=== PATIENT | male | born 1950 | race Caucasian/White ===

== ENCOUNTER → 2020-06-19 07:53 | Outpatient (CLI) | payer OTHER, SELFPAY ==
[2020-06-13 10:11] VITALS: BMI 21.9
[2020-06-14 10:04] VITALS: BMI 22.1
--- NOTE | 2020-06-19 07:54 | MRI_ITS ---
STUDY: MRI BRAIN WITH AND WITHOUT CONTRAST REASON FOR EXAM: Male, 69 years old. lung cancer staging TECHNIQUE: Standardized multiplanar fat and water weighted pulse sequences were obtained. IV 15ml Dotarem was administered for the contrast portion of the examination. COMPARISON: None. FINDINGS: There is mild cerebral atrophy with widening of the extra-axial spaces and ventricular dilatation. There are a limited number of small white matter hyperintensities, distributed throughout the deep white matter tracts of the cerebral hemispheres, consistent with mild chronic white matter ischemic changes. Normal bilateral basal ganglia. Normal thalami. There is no extra-axial fluid accumulation. Normal flow voids within the major intracranial circulation suggesting patency by spin echo criteria. Normal venous enhancement. There is no enhancing intra-axial or extra-axial abnormality. Normal sella turcica, pituitary gland, infundibular stalk, optic chiasm and hypothalamus. Normal tectal plate and pineal gland. There are chronic white matter ischemic changes of the lupillo. The midbrain and medulla are otherwise normal. Normal cerebellum. MRI/Brain W/WO Contrast IMPRESSION: No evidence of intracranial metastatic disease. No acute intracranial abnormality. Electronically Signed: Fern Vail MD at 15:50 EDT Tel , Service support ,
--- NOTE | 2020-06-19 07:54 | MRI_ITS ---
STUDY: MRI RIGHT BRACHIAL PLEXUS WITH AND WITHOUT CONTRAST REASON FOR EXAM: Male, 69 years old. lung cancer eval for brachial plexus disease -- eval for plexus and CW invasion TECHNIQUE: Standardized fat and water weighted pulse sequences were obtained in all 3 orthogonal planes, pre-and post contrast administration. IV 15ml Dotarem was administered for the contrast portion of the examination. COMPARISON: PET/CT exam dated April 27, 2020. FINDINGS: 7.47 x 5.58 cm heterogeneous malignant spiculated mass is present in the right upper lobe apex and upper one third region, mildly invading the right side of the superior mediastinum. There is edema and malignant infiltration of the overlying right second and third ribs, as well as the pleura. There is diffuse edema in the right brachial plexus and in the sheath of the nerve roots. There appears to be a small component of the right upper lobe mass extending into the posterior inferior aspect of the brachial plexus which is seen on all 3 planes particularly on the postcontrast images. This is also seen on the T1 noncontrast sequence image series 3. A portion of the mass also extends into the right neural foramen at the T1, T2, T3 levels. Portions of the right upper lobe malignant mass encircling nerve roots at this level. No demonstrated metastatic disease or primary mass of the scapula on this exam. No demonstrated abnormality in the course of the roots, trunks, divisions or cords of the brachial plexus. There is no demonstrated neural enlargement, neural edema or enhancement of the brachial plexus. Normal visualized subclavian artery and vein. Normal muscles of the rotator cuff. The visualized shoulder is normal. Normal pulmonary apex. MRI/Upper Ext No Joint W/WO Cont IMPRESSION: 1. Large heterogeneous malignant mass of the right upper lobe invading the pleura and the right superior mediastinum 2. Malignant infiltration of the mass into the right second and third ribs 3. 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 4. Malignant invasion of portions of the mass into the right intervertebral neural foramina at T1-T2 and T2-T3 Electronically Signed: Bigg Torres MD at 0:01 EDT , Service support ,
== END ==
PROVIDERS: Referring Provider Student in an Organized Health Care Education/Training Program; Visit Provider Student in an Organized Health Care Education/Training Program
DX: C34.90 Malignant neoplasm of unspecified part of unspecified bronchus or lung (principal)
CPT/HCPCS: 70553; 73220; A9575

== ENCOUNTER 2020-06-29 11:00 | Day surgery (SDC) | payer OTHER, SELFPAY ==
[2020-06-13 10:11] VITALS: BMI 21.9
[2020-06-20 13:24] VITALS: BMI 22.4
[2020-06-28 08:48] VITALS: BMI 22.4
[2020-06-29] VITALS (7 sets, daily range): BP systolic 128–139; BP diastolic 62–74; PULSE 60–83; RESP 14–20; TEMP 36.1–36.6; O2SAT 94–100; BMI 22.5
--- NOTE | 2020-06-29 07:00 | HP_ITS ---
Intake Vital Signs 06/20/20 Height 6 ft 06/20/20 Weight: 165 lb 06/20/20 BMI 22.4 06/20/20 BP 118/71 06/20/20 Blood Pressure Location Rt brachial 06/20/20 Position Sitting 06/20/20 Respiration 18 06/20/20 Pulse 97 06/20/20 Pulse Oximetry (%) 98 06/20/20 Oxygen Delivery Method room air Intake Visit Reasons: port placement Chief Complaint: port Dust Handler Required: No Is patient in pain?: No Allergies Iodinated Contrast Media [CONTRASTS] Allergy (Verified 06/20/20 13:24) Anaphylaxis Medications Finasteride [Proscar] 5 mg PO DAILY 06/13/20 [History Confirmed 06/20/20] Hydrochlorothiazide [Hctz] 12.5 mg PO DAILY 06/13/20 [History Confirmed 06/20/20] Losartan Potassium [Cozaar] 1 tab PO DAILY 06/13/20 [History Confirmed 06/20/20] Amitriptyline HCl 0 mg PO QHS #30 tab 06/14/20 [Rx Confirmed 06/20/20] Amlodipine [Norvasc] 5 mg PO DAILY 06/14/20 [History Confirmed 06/20/20] Cholecalciferol (VIT D3) [Vitamin D] 1,000 unit PO DAILY 06/14/20 [History Confirmed 06/20/20] Dexamethasone [Decadron] 4 mg PO DAILY@0800 #30 tab 06/14/20 [Rx Confirmed 06/20/20] Lactobacillus Combination No.8 [Adult Probiotic] 1 ea PO DAILY 06/14/20 [History Confirmed 06/20/20] Salsalate [Salsitab] 750 mg PO BID 06/14/20 [History Confirmed 06/20/20] Tamsulosin HCl [Flomax] 0.4 mg PO DAILY 06/14/20 [History Confirmed 06/20/20] Lidocaine/Prilocaine [Lidocaine-Prilocaine Cream] 1 applic TP DAILY PRN PRN 30 Days #1 tube 06/19/20 [Rx Confirmed 06/20/20] Ondansetron [Ondansetron Odt] 8 mg PO Q8H PRN PRN 10 Days #30 tab.rapdis 06/19/20 [Rx Confirmed 06/20/20] PFSH Medical History Lung cancer (Acute) REMOVAL OF BENIGN MOLES ON BACK (Acute) Surgical History History of appendectomy (Acute ~2005) Previous back surgery (Acute ~2003) Status post Mohs surgery (Acute ~2012) Family History Brother Lung cancer Father Black lung Social History (Updated 06/20/20 @ 13:[address] Nellie Hernández MD) Smoking Status: Former smoker HPI HPI HPI: PALOMA DUMONT, is a 69 M who presents to the office today for HPI HPI Surgical H&P: Yes HPI: PALOMA DUMONT, is a 69 M who presents to the office today for port placement due to non-small cell cancer. Patient plans to start his treatments on 07/03/2020. He is planned to have chemo in radiation. Patient is not on any blood thinners. ROS General General: Yes weight change and fatigue Cardio Cardiovascular: No chest pain Resp Respiratory: Yes shortness of breath, No sleep apnea, No cough, Yes COPD, No asthma, No emphysema, No wheezing Exam Const General: cooperative, comfortable, no acute distress Neck Neck: supple Chest Chest palpation & inspection: normal inspection of the chest (Upper and normal palpation of upper chest) Resp Effort & Inspection: normal respiratory effort Cardio Rate: regular rate Assessment & Plan Problems 1. Adjustment and management of vascular access device Z45.2 2. NSCLC of right lung C34.91 Plan I have discussed above with the patient- Port-a-Cath placement. Left possible right Patient has been counseled as to the risks/benefits of the procedure. I have explained the risks of the surgery, including but not limited to: infection, bleeding, injury to any blood vessels/nerves, injury to lungs (such as pneumothorax or hemothorax and need for chest tube), not having any access, nonfunctioning of port due to thrombosis, infection of port, etc. the patient understands and agrees to proceed. I have answered all the patient's questions to the patient?s satisfaction and the patient has no further questions. Nellie Hernández M.D. Pager: [phone] [facility] [address] [place] [address], [facility], [address] [place] [address] Office: [phone] Plan Detail Follow Up We will schedule port placement for 06/29 per patient request Coding Level of Care Code Off vis,new,level 3 Diagnoses Adjustment and management of vascular access device Z45.2 NSCLC of right lung C34.91 COVID (Procedure Consent) Procedure Criteria Procedure Criteria: Yes Elective The surgeon/proceduralist and patient have discussed in detail the risk of exposure to and/or potential harm posed by the COVID-19 virus with having a surgery/procedure at this time versus the risk of? delaying the surgery/procedure. It is not possible to know either the risk of delaying the surgery or procedure or chance of getting an infection with perfect accuracy, but a joint decision was made between the patient and the surgeon/proceduralist ?to proceed at this time with the scheduled surgery/procedure as indicated on the consent form. I have re-examined the patient. There are no clinical changes since date of exam.
[2020-06-29] MEDS: Lactated Ringers 1,000 ML 100 ML IV (12:04)
[2020-06-29] MEDS: Cefazolin 2 GM in 0.9% Normal Saline 100 ML IV (12:29)
[2020-06-29] MEDS: Lidocaine 1% /Epi 1:100 (20ml) 20 ML Vial (13:00)
[2020-06-29] MEDS: Bupivacaine Mpf 0.5% 30 ML VIAL (13:00)
--- NOTE | 2020-06-29 13:14 | PCM.OPRPT ---
Report of Operation Date of Procedure: 06/29/20 Pre-Operative Diagnosis: Z 45.2, right lung cancer Post-Operative Diagnosis: Same Surgery/Procedure Performed:: 1. Placement of left IJ Port-A-Cath. 2. Use of fluoroscopy. 3. Use of ultrasound senior principal process engineer: Gerber Mcneil Type of Anesthesia:: Local MAC Anesthesiologist: Placido Lindsey Special Medications: Ancef 2 g IV x1 Estimated Blood Loss (mL): < 10 cc Fluids Replaced: 500 cc Description of Procedure: After informed consent was given, the patient was brought to the operating room and placed in the supine position. Appropriate time out protocol was followed. Patient was then given IV conscious sedation for anesthesia. The patient's left upper chest and neck were then prepped with a surgical skin preparation and sterile surgical drapes were placed. After proper landmarks were ascertained, the skin at the upper left chest area was then infiltrated with 1:1 mixture of 1% lidocaine with epinephrine and 0.5% marcaine. A needle trocar was then inserted into the left internal jugular vein with ultrasound guidance-multiple vessels were viewed with u/s and the left IJ was chosen-- and there was good aspiration of venous blood. A wire was then threaded into the needle trocar and this was visualized under fluoroscopy to ensure that the wire was in the superior vena cava. Once this was done, then the needle trocar was removed. A small skin marlin was made with an 11 blade knife at the wire entrance site. The dilator with the introducer sheath attached was then placed over the wire into the left internal jugular vein via the Seldinger technique and this was visualized under fluoroscopy. The dilator and sheath were in proper position as visualized by fluoroscopy. A subcutaneous pocket was then created caudad to the catheter insertion site. A transverse skin incision was made after the skin and subcutaneous tissues were infiltrated with local anesthetic. Blunt dissection was then used to create a space large enough for placement of the subcutaneous port. The catheter was then tunneled into the subcutaneous pocket. The wire and dilator were then removed. The catheter was then threaded into the introducer sheath and was positioned with its tip at the junction of the superior vena cava and the right atrium as visualized under fluoroscopy. The excess catheter was transected. The catheter was then attached to the subcutaneous port using manufacturers guidelines. The catheter was flushed with a heparin saline mixture prior to placement. Hemostasis was carefully controlled with electrocautery. The port was sutured to the subcutaneous fascia using 2-0 Vicryl suture at two sites. The port was then placed in the subcutaneous pocket. The incision were reapproximated with interrupted subdermal 3-0 vicryl sutures. The skin was reapproximated with 3-0 nylon suture in a interrupted fashion. Steristrips were used for reinforcement of the skin closure at IJ insertion site and a sterile opsite dressings were applied. The patient tolerated the procedure well. Implants Used: Bard PowerPort isp M.R.I. 6Fr Lot ref [id number] lot [id number] Grafts/Implants Used: Bard PowerPort isp M.R.I. 6Fr Lot ref [id number] lot [id number] - Complications none
--- NOTE | 2020-06-29 13:16 | DCINST_ITS ---
Discharge Diet: Light diet - advance as tolerated Lifting Restrictions: no lifting > 20 lb w left arm x 2 days Call your doctor if your incision/area has: Continuous Slow Oozing, Sudden Increased Bleeding, Increased Pain/ Swelling, Increased Redness, Foul Smelling Discharge, Swelling at the incision site Call your doctor if you observe: Fever of 101 or Higher Remove Dressing in (days):: 5 - Keep port site clean and dry for 5 days. Okay to remove the OpSite from the neck incision after 1 day. Also okay for the neck incision to get wet after 1 day. Okay to take a lower shower and upper sponge bath or tape off the port site with a Ziploc bag to shower. Allergies/Adverse Reactions: Allergies Iodinated Contrast Media [CONTRASTS] Allergy (Verified 06/28/20 13:53) Anaphylaxis Medications to take at Discharge Finasteride [Proscar] 5 mg PO DAILY 06/13/20 Hydrochlorothiazide [Hctz] 12.5 mg PO DAILY 06/13/20 Losartan Potassium [Cozaar] 1 tab PO DAILY 06/13/20 Amlodipine [Norvasc] 5 mg PO DAILY 06/14/20 Cholecalciferol (VIT D3) [Vitamin D] 1,000 unit PO DAILY 06/14/20 Dexamethasone [Decadron] 4 mg PO DAILY@0800 #30 tab 06/14/20 Lactobacillus Combination No.8 [Adult Probiotic] 1 ea PO DAILY 06/14/20 Salsalate [Salsitab] 750 mg PO BID 06/14/20 Tamsulosin HCl [Flomax] 0.4 mg PO DAILY 06/14/20 Lidocaine/Prilocaine [Lidocaine-Prilocaine Cream] 1 applic TP DAILY PRN PRN 30 Days #1 tube 06/19/20 Ondansetron [Ondansetron Odt] 8 mg PO Q8H PRN PRN 10 Days #30 tab.rapdis 06/19/20 Amitriptyline HCl 25 mg PO QHS 06/22/20 Vit C/E/Zn/Coppr/Lutein/Zeaxan [Preservision Areds 2 Softgel] 1 each PO DAILY 06/22/20 Primary Care Physician: [facility],[place] [Primary Care Provider] - Test Results: Test results from this visit will be discussed in further detail at your follow- up appointment, if applicable. Please Follow Up With: Nellie Hernández MD - 5:00 on the weekends call [phone] with any concerns When: Call the office for a follow-up appointment in 10 days for suture removal Proposed Discharge Date: 06/29/20
--- NOTE | 2020-06-29 13:18 | RAD_ITS ---
STUDY: X-RAY CHEST REASON FOR EXAM: Male, 69 years old. Port -- pacu TECHNIQUE: Single AP portable view of the chest. COMPARISON: None. FINDINGS: A left-sided hillary catheter has been placed. The tip is at the junction of the superior vena cava and right atrium. Hyperinflation. There is a 9 cm x 5.9 cm mass in the medial apex of the right lung. There is no demonstrated pleural abnormality. Normal size heart. Normal mediastinum and diogenes. Normal visualized pulmonary arteries. There is atherosclerotic calcification of the aortic arch with tortuosity. Normal visualized thoracic spine. Normal visualized ribs, clavicles, and shoulders. There is no demonstrated abnormality of the visualized soft tissue structures of the upper abdomen. RAD/CXR for Line Placement IMPRESSION: The tip of the left hillary catheter is at the junction of the superior vena cava and right atrium. 9 cm x 5.9 cm mass in the medial right lung apex. Electronically Signed: Jas Tejada MD at 13:55 EDT , Service support ,
== END 2020-06-29 14:33 | disposition home or self-care (01) ==
LOC: SDC 11:00 → AC 11:01
PROVIDERS: Referring Provider Surgery; Visit Provider Surgery
PROC: (CPT 36561; principal; 2020-06-29 12:45)
DX: Z45.2 Encounter for adjustment and management of vascular access device (principal); C34.91 Malignant neoplasm of unspecified part of right bronchus or lung; Z79.899 Other long term (current) drug therapy; Z79.52 Long term (current) use of systemic steroids; Z20.828 Contact with and (suspected) exposure to other viral communicable diseases; Z87.891 Personal history of nicotine dependence
CPT/HCPCS: 36561; 71045; 77001; 87426; C9803; J2405

== ENCOUNTER 2020-07-09 16:03 | Inpatient (IN) | payer OTHER, MEDICARE, SELFPAY ==
[2020-06-13 10:11] VITALS: BMI 21.9
[2020-07-05 14:44] VITALS: BMI 22.6
[2020-07-09] VITALS (11 sets, daily range): BP systolic 116–151; BP diastolic 57–75; PULSE 81–107; RESP 16–19; TEMP 36.6–38.1; O2SAT 95–99; BMI 22.4; BMI 22.8
--- NOTE | 2020-07-09 16:14 | EKG12_ITS ---
Test Reason : SYNCOPE Blood Pressure : / mmHG Vent. Rate : 107 BPM Atrial Rate : 107 BPM P-R Int : 140 ms QRS Dur : 088 ms QT Int : 314 ms P-R-T Axes : 058 055 061 degrees QTc Int : 419 ms Sinus tachycardia Otherwise normal ECG Confirmed by JONATHON NUÑEZ, DANIEL ([id number]), index editor EBONI LEWIS ([id number]) on 07/12/2020 7:52:18 AM Referred By: GULSHAN Confirmed By:DANIEL HOLT MD
--- NOTE | 2020-07-09 16:28 | ED.DCSUM_ITS ---
History of Present Illness Chief Complaint: Syncope Informant: Patient Narrative: 69-year-old male with history of non-small cell carcinoma. He was diagnosed with this 04/19/2020. He was started on chemotherapy weekly with Taxol/carboplatin. He is also been doing radiation has had treatment treatments so far. He has a port placed in the left upper chest wall. Patient states that he believes he had a fever this morning however he did not check it until 30 minutes prior to arrival. He had not taken anything for a fever. He states that he has chills all day long. He denies body aches. He does state that he has a change in taste however this is coppery and has been present since star ting chemotherapy recently. He states he is always short of breath but this is unchanged. He denies a cough. He denies urinary or bowel symptoms. He states he has not had any contact with anybody that is ill. Patient states that he currently is weaned off of steroids and had his last dose the day before yesterday. Today he does report an episode of syncope at home. Past Medical History - Allergies and Home Meds Allergies/Adverse Reactions: Allergies Iodinated Contrast Media [CONTRASTS] Allergy (Verified 07/09/20 16:12) Anaphylaxis Primary Care Physician: [facility],[place] [Primary Care Provider] - Prior records reviewed: Yes Past Medical History: - - Hypertension, BPH, non-small cell carcinoma right upper lobe Surgical History: - - Had port Lives: Spouse/ Significant Other Smoking Status: Former smoker Alcohol: None Drugs: None Review of Systems General: Reports: Chills, Fever. Denies: Malaise, Subjective Eyes: Denies: Visual changes - bilaterally, Diplopia ENT: Denies: Rhinorrhea, Sore throat Cardiovascular: Denies: Chest pain, Palpitations Respiratory: Reports: Dyspnea. Denies: Cough Gastrointestinal: Denies: Abdominal pain, Nausea, Vomiting, Diarrhea, Melena, Hematochezia Musculoskeletal: Denies: Back pain, Extremity Pain Skin: Denies: Rash, Wounds Neurological: Denies: Headache, Weakness, Numbness Psych: Denies: Depression, Anxiety, Suicidal thoughts, Suicidal ideations, -, - Physical Exam Vital Signs/Narrative: Vital Signs Temp Pulse Resp BP Pulse Ox 07/09/20 16:05 100.6 F H 107 H 19 H 151/75 H 98 Inital Vital Signs reviewed: Yes General: Well nourished, No Acute Distress Head: Normocephalic, Atraumatic Eyes: Perrl, EOMI ENT: Moist mucous membranes, No rhinorrhea Neck: Supple, Nontender Cardiovascular: Regular rhythm, Tachycardia Respiratory: No distress, - - Basal crackles left lung base Abdomen: Soft, Nontender, Nondistended Extremities: Nontender, No edema Skin: Normal color, No rash. Negative for: Cyanosis, Diaphoresis, Jaundice Neurological: Alert, Oriented x3, Cranial nerves II-XII grossly intact Psychological: Normal affect, Normal Mood Diagnostic/Tx/Re-eval Clinical Impression(s) from Imaging Studies Chest X-Ray 07/09/20 16:42 IMPRESSION: Stable exam compared to prior study on 06/29/2020. Electronically Signed: Brad Patel MD at 17:00 EDT Tel , Service support , Laboratory Data 07/09/20 07/09/20 07/09/20 16:35 16:35 16:35 WBC 8.5 RBC 3.22 L Hgb 8.5 L Hct 25.2 L MCV 78.3 L MCH 26.4 L MCHC 33.7 RDW Std Deviation 47.9 H RDW Coeff of Hill 17.6 H Plt Count 395 MPV 9.2 Immature Gran % (Auto) 2.100 H Neut % (Auto) 90.0 H Lymph % (Auto) 4.4 L Hinds % (Auto) 2.7 Eos % (Auto) 0.4 Baso % (Auto) 0.4 Absolute Neuts (auto) 7.6 Absolute Lymphs (auto) 0.37 L Nucleated RBC % 0 Differential Comment SCANNED Platelet Estimate ADEQUATE Hypochromasia 1+ Anisocytosis 2+ Microcytosis 1+ Target Cells RARE Acanthocytes (Spur) RARE Schistocytes RARE PT 15.6 H INR 1.3 APTT 31.9 Sodium 129 L Potassium 4.3 Chloride 97 L Carbon Dioxide 25.0 Anion Gap 7 BUN 31 H Creatinine 1.17 Estim Creat Clear Calc 62.19 Est GFR (MDRD) Af Amer 79 Est GFR (MDRD) Non-Af 65 BUN/Creatinine Ratio 26.5 H Glucose 125 H Lactic Acid Calcium 7.7 L Total Bilirubin 0.30 AST 19 ALT 29 Alkaline Phosphatase 141 H Total Protein 5.8 L Albumin 1.9 L Globulin 3.9 Albumin/Globulin Ratio 0.5 L Urine Color Urine Clarity Urine pH Ur Specific [place] Urine Protein Urine Glucose (UA) Urine Ketones Urine Occult Blood Urine Nitrite Urine Bilirubin Urine Urobilinogen Ur Leukocyte Esterase Urine RBC Urine WBC Ur Squamous Epith Cells Amorphous Sediment Urine Bacteria Urine Mucus 07/09/20 07/09/20 16:35 17:10 WBC RBC Hgb Hct MCV MCH MCHC RDW Std Deviation RDW Coeff of Hill Plt Count MPV Immature Gran % (Auto) Neut % (Auto) Lymph % (Auto) Hinds % (Auto) Eos % (Auto) Baso % (Auto) Absolute Neuts (auto) Absolute Lymphs (auto) Nucleated RBC % Differential Comment Platelet Estimate Hypochromasia Anisocytosis Microcytosis Target Cells Acanthocytes (Spur) Schistocytes PT INR APTT Sodium Potassium Chloride Carbon Dioxide Anion Gap BUN Creatinine Estim Creat Clear Calc Est GFR (MDRD) Af Amer Est GFR (MDRD) Non-Af BUN/Creatinine Ratio Glucose Lactic Acid 1.5 Calcium Total Bilirubin AST ALT Alkaline Phosphatase Total Protein Albumin Globulin Albumin/Globulin Ratio Urine Color Yellow Urine Clarity Sl. Cloudy Urine pH 7.0 Ur Specific [place] 1.005 Urine Protein 30 H Urine Glucose (UA) 250 H Urine Ketones Negative Urine Occult Blood 10 H Urine Nitrite Negative Urine Bilirubin Negative Urine Urobilinogen 1 H Ur Leukocyte Esterase Negative Urine RBC 0-5 SEEN Urine WBC 0 SEEN Ur Squamous Epith Cells 0-5 SEEN Amorphous Sediment 1+ PHOS Urine Bacteria 0 SEEN Urine Mucus 0 SEEN - Medical Decision Making Patient presenting with fever, history of syncope earlier today, history of non- small cell lung cancer on chemotherapy and radiation therapy. Patient took nothing for fever prior to arrival. He was given a gram of Tylenol in the ED. Patient had EKG performed on arrival which showed a sinus tachycardia at 107 bpm without signs of ischemic changes as interpreted by myself. Review of the medical record shows that on 07/05/2020 he had a white blood cell count of 26.7, hemoglobin 9.0 hematocrit 27.6, platelet count 522. His CMP showed a sodium of 134, potassium 4.2, chloride 104, CO2 23, anion gap 7, BUN 42, creatinine 1.29 GFR 58, normal magnesium LFTs were unremarkable. Patient currently states he has chronic shortness of breath and a mild cough. He also has a fever. Given that he has SIRS criteria he was pancultured. Patient was given Zosyn empirically given concern for neutropenic fever. Patient was not found to be neutropenic and his white blood cell count had normalized. His hemoglobin was slightly lower than previous. This is likely due to chemotherapy. His chest x- ray as interpreted by myself shows no acute cardiopulmonary process. Patient does have a normal GFR however he does also have prerenal azotemia. He was given a liter of IV fluids after his Covid swab was negative. Respiratory panel is pending. Patient's urinalysis was negative for infection. His urine and blood are cultured. Patient's fever has broken and he feels improved. Patient was discussed with specialist who will admit him for observation. Impression: 1. Syncope 2. Febrile illness 3. History of non-small cell carcinoma ED Disposition - Plan for ED Patient: [facility]errals: [facility] [Primary Care Provider] -
--- NOTE | 2020-07-09 16:42 | RAD_ITS ---
INDICATION: fever EXAMINATION/TECHNIQUE: X-RAY - XR Chest 1 View COMPARISON: 06/29/2020. FINDINGS: Left sided chest port with tip in the low SVC. Left basilar atelectasis. Redemonstration of right apical lung mass. Tortuous and calcified thoracic aorta. The heart is not enlarged. No pleural effusion or pneumothorax. No acute osseous abnormalities. RAD/Chest 1 View (Portable) IMPRESSION: Stable exam compared to prior study on 06/29/2020. Electronically Signed: Brad Patel MD at 17:00 EDT Tel , Service support ,
[2020-07-09 16:47] LABS: Absolute Lymphocyte Count 0.37 X10^3/uL (0.83-4.51); Absolute Neutrophil Count 7.6 X10^3/uL (2.0-7.7); Basophil# 0.03 X10^3/uL; Basophil% 0.4 % (0-1); Eosinophil# 0.03 X10^3/uL; Eosinophils% 0.4 % (0-5); Hematocrit 25.2 % (40-54); Hemoglobin 8.5 g/dL (13.0-16.5); Lymphocyte # 0.37 X10^3/ul (4.0); Lymphocyte % 4.4 % (19-41); Mean Corp Hgb Conc 33.7 g/dL (32-36); Mean Corpuscular Hgb 26.4 pg (27.0-32.0); Mean Corpuscular Volume 78.3 fL (80-94); Mean Platelet Vol. 9.2 fl (6.2-12.0); Monocyte# 0.23 X10^3/uL; Monocyte% 2.7 % (0-10); NRBC Flagged by Analyzer 0 % (0-5); Neutrophil # 7.63 X10^3/uL (2.7-7.7); POSITIVE DIFFERENTIAL YES; Platelet Count 395 K/mm3 (150-450); RBC Distribution Width CV 17.6 % (11.6-14.6); RBC Distribution Width SD 47.9 fl (35.1-43.9); Red Blood Count 3.22 M/mm3 (4.6-6.2); White Blood Count 8.5 K/mm3 (4.4-11.0)
[2020-07-09] MEDS: Acetaminophen 500 MG Tablet 1000 MG PO (16:51)
[2020-07-09 16:57] LABS: Differential Indicated SCAN CRITERIA MET
[2020-07-09 17:02] LABS: International Normalized Ratio 1.3; Prothrombin Time (Protime)PT. 15.6 SECONDS (11.7-14.9)
[2020-07-09 17:03] LABS: Partial Thromboplast Time 31.9 Seconds (24.1-36.2)
[2020-07-09 17:12] LABS: ALB/GLOB Ratio 0.5 RATIO (0.9-2.4); AST(SGOT) 19 U/L (15-37); Alanine Aminotransfer ALT/SGPT 29 U/L (16-61); Albumin, Serum 1.9 g/dL (3.2-5.0); Alkaline Phosphatase 141 U/L (45-117); Anion Gap 7 (5-15); BUN 31 mg/dL (7-18); BUN/Creat Ratio 26.5 RATIO (10-20); Calcium,Total 7.7 mg/dL (8.5-10.1); Chloride 97 mmol/L (98-107); Creatinine, Serum 1.17 mg/dL (0.70-1.30); EST Glomerular Filtration Rate 65 mL/min (>60); Est Glom Filt Rate - Afr Amer 79 mL/min (>60); Estimated Creatinine Clearance 62.19 ml/min; Globulin 3.9 g/dL (2.2-4.2); Glucose 125 mg/dL (74-106); Lactic Acid 1.5 mmol/L (0.4-1.9); Potassium 4.3 mmol/L (3.5-5.1); Protein, Total 5.8 g/dL (6.4-8.2); Sodium Level 129 mmol/L (136-145)
[2020-07-09 17:17] LABS: Bacteria 0 SEEN /hpf (None Seen); Mucous, Urine 0 SEEN /hpf (<or=2+); White Blood Cells 0 SEEN /hpf (0-5)
[2020-07-09 17:25] LABS: Color, Urine Yellow (Yellow); Glucose, Dipstick 250 mg/dl (Normal); Ketone-Dipstick Negative (Negative); Leukocyte Esterase-Dipstick Negative /ul (Negative); Nitrite-Dipstick Negative (Negative); Occult Blood-Urine 10 /ul (Negative); Protein-Dipstick 30 mg/dl (Negative); Specific Gravity, Urine 1.005 (1.002-1.030); Urine Bilirubin Dipstick Negative (Negative); Urine Clarity Sl. Cloudy (Clear); Urine Urobilinogen 1 mg/dl (Normal)
[2020-07-09 17:35] LABS: Amorphous Sediment 1+ PHOS; Red Blood Cells-Urine 0-5 SEEN /hpf (0-5); Squamous Epithelial Cells - UA 0-5 SEEN /hpf (0-5)
[2020-07-09 17:41] LABS: Acanthocytes RARE; Anisocytosis 2+; Differential Comment SCANNED; Hypochromasia 1+; Platelet Estimate ADEQUATE (ADEQ)
[2020-07-09 17:42] LABS: Schistocytes RARE
[2020-07-09 17:43] LABS: Microcytosis 1+; Target Cells RARE
[2020-07-09] MEDS: 0.9% Normal Saline 1,000 ML 999 ML IV (18:21)
--- NOTE | 2020-07-09 19:09 | HP.PCM_ITS ---
History of Present Illness Date of Admission: 07/09/20 Chief Complaint: Chills and fever with syncope The patient is a 69 year old M with a PMH as below presents to the hospital with fevers and chills as well as an episode of syncope this morning. He says that he has not been feeling right since he started chilling this morning and then prior to coming in he had a fever of 102. He also had an episode of syncope this morning and he said that he had been feeling lightheaded and dizzy prior to the fall indicating that it was a vasovagal episode. Denies any worsening shortness of breath, he states that he is chronically short of breath secondary to his COPD and is newly diagnosed stage IIIb non-small cell lung cancer in his right upper lobe. He is currently undergoing chemotherapy and had a port placed about 10 days ago and underwent his first dose of chemotherapy I believe on June 28. He denies any abdominal pain, no cough, no urinary frequency or dysuria. UA was unremarkable, chest x-ray without a consolidation, his Covid test is negative. Respiratory panel is pending. Past Medical History Medical History: Medical History (Last Reviewed 07/05/20 @ 09:14 by Ladonna Swanson RN) Lung cancer C34.90 REMOVAL OF BENIGN MOLES ON BACK Allergies Iodinated Contrast Media [CONTRASTS] Allergy (Verified 07/09/20 16:12) Anaphylaxis Home Medications: Ambulatory Orders Medication Instructions Recorded Finasteride [Proscar] 5 mg PO DAILY 06/13/20 Hydrochlorothiazide [Hctz] 12.5 mg PO DAILY 06/13/20 Losartan Potassium [Cozaar] 1 tab PO DAILY 06/13/20 Amlodipine [Norvasc] 5 mg PO DAILY 06/14/20 Cholecalciferol (VIT D3) [Vitamin 1,000 unit PO DAILY 06/14/20 D] Lactobacillus Combination No.8 1 ea PO DAILY 06/14/20 [Adult Probiotic] Salsalate [Salsitab] 750 mg PO BID 06/14/20 Tamsulosin HCl [Flomax] 0.4 mg PO DAILY 06/14/20 Lidocaine/Prilocaine 1 applic TP DAILY PRN PRN 30 Days 06/19/20 [Lidocaine-Prilocaine Cream] #1 tube Ondansetron [Ondansetron Odt] 8 mg PO Q8H PRN PRN 10 Days #30 06/19/20 tab.rapdis Amitriptyline HCl 25 mg PO QHS 06/22/20 Surgical History: Surgical History (Last Reviewed 07/05/20 @ 09:14 by Ladonna Swanson RN) History of appendectomy Onset Date: ~2005 Z90.49 Previous back surgery Onset Date: ~2003 Z98.890 Status post Mohs surgery Onset Date: ~2012 Z98.890 NOSE Surgical History: - - Had port Lives: Spouse/ Significant Other Smoking Status: Former smoker Tobacco Use: Cigarettes Alcohol: None Drugs: None - *Family History Maternal Family History: Family History (Last Reviewed 07/05/20 @ 09:14 by Ladonna Swanson RN) Brother Lung cancer Father Black lung Review of Systems Constitutional: Reports: Chills, Fever, Malaise. Denies: Weight Change HEENT: Denies: Head Aches, Sinus Congestion, Sinus Drainage Cardiovascular: Denies: Chest Pain, Palpitations Respiratory: Denies: Cough, Shortness of breath at rest, Sputum production Gastrointestinal: Denies: Abdominal Pain, Nausea, Vomiting Genitourinary: Denies: Dysuria, Frequency Musculoskeletal: Denies: Joint Pain, Joint Tenderness Skin: Denies: Rash, Wounds Neurological: Denies: Numbness, Tingling, Focal weakness Psychiatric: Denies: Anxiety, Depression Hematologic/ Lymphatic: Denies: Easy Bruising, Easy Bleeding VTE Information - Inpt Only VTE Present on Admission: No - Physical Exam Vitals/I&O's: Vital Signs Temp Pulse Resp BP Pulse Ox 98.2 F 81 17 128/57 H 99 07/09/20 18:14 07/09/20 18:09 07/09/20 18:09 07/09/20 18:09 07/09/20 18:09 Oxygen Delivery Method Room Air Weight: 165 lb Body Mass Index (BMI) 22.4 Intake and Output for Last 24 Hours 07/07/20 07/08/20 07/09/20 23:59 23:59 23:59 Intake Total 50 / 50 Balance 50 / 50 General: Alert, Oriented x3, Cooperative, No apparent distress HEENT: Atraumatic, PERRLA, EOMI, Normocephalic Oral: Moist Mucosa Neck: Supple, No JVD Lungs: Clear to auscultation, Normal air movement, No rhonchi, No wheeze, No rales Cardiovascular: Regular rate, Regular Rhythm, Normal S1, Normal S2, No murmurs Abdomen: Soft, Non Tender, Non-Distended, No Hepato-splenomegaly Extremities: No edema, Capillary Refill Less than 3 Seconds Skin: No rashes, No breakdown, - - Skin around the port looks clean, no infection no purulence no pain Neurological: Neuro grossly intact, Sensory exam intact to light touch and pain Psych/Mental Status: Normal Affect, Appropriate Microbiology Past 72 Hours 07/09/20 16:28 Mucosa - Nose SARS-CoV-2 Antigen (Rapid) - Final Laboratory Results 07/09/20 16:35: WBC 8.5, RBC 3.22 L, Hgb 8.5 L, Hct 25.2 L, MCV 78.3 L, MCH 26.4 L, MCHC 33.7, RDW Std Deviation 47.9 H, RDW Coeff of [place] 17.6 H, Plt Count 395, MPV 9.2, Immature Gran % (Auto) 2.100 H, Neut % (Auto) 90.0 H, Lymph % (Auto) 4.4 L, [place] % (Auto) 2.7, Eos % (Auto) 0.4, Baso % (Auto) 0.4, Absolute Neuts (auto) 7.6, Absolute Lymphs (auto) 0.37 L, Nucleated RBC % 0, Differential Comment SCANNED, Platelet Estimate ADEQUATE, Hypochromasia 1+, Anisocytosis 2+, Microcytosis 1+, Target Cells RARE, Acanthocytes (Spur) RARE, Schistocytes RARE 07/09/20 16:35: PT 15.6 H, INR 1.3, APTT 31.9 07/09/20 16:35: Sodium 129 L, Potassium 4.3, Chloride 97 L, Carbon Dioxide 25.0, Anion Gap 7, BUN 31 H, Creatinine 1.17, Estim Creat Clear Calc 62.19, Est GFR (MDRD) Af Amer 79, Est GFR (MDRD) Non-Af 65, BUN/Creatinine Ratio 26.5 H, Glucose 125 H, Calcium 7.7 L, Total Bilirubin 0.30, AST 19, ALT 29, Alkaline Phosphatase 141 H, Total Protein 5.8 L, Albumin 1.9 L, Globulin 3.9, Albumin/Globulin Ratio 0.5 L 07/09/20 16:35: Lactic Acid 1.5 07/09/20 17:10: Urine Color Yellow, Urine Clarity Sl. Cloudy, Urine pH 7.0, Ur Specific [place] 1.005, Urine Protein 30 H, Urine Glucose (UA) 250 H, Urine Ketones Negative, Urine Occult Blood 10 H, Urine Nitrite Negative, Urine Bilirubin Negative, Urine Urobilinogen 1 H, Ur Leukocyte Esterase Negative, Urine RBC 0-5 SEEN, Urine WBC 0 SEEN, Ur Squamous Epith Cells 0-5 SEEN, Amorphous Sediment 1+ PHOS, Urine Bacteria 0 SEEN, Urine Mucus 0 SEEN Current Medications Sodium Chloride () 1,000 mls @ 999 mls/hr IV .Q1H1M ONE Stop: 07/09/20 19:12 Last Admin: 07/09/20 18:21 Dose: 999 mls/hr Documented by: Assessment/Plan All Active Problems (Last Reviewed 07/05/20 @ 09:14 by Ladonna Swanson RN) 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 Fever of unknown origin/NSCLC stage IIIb squamous cell -No leukocytosis however neutrophils are elevated as her immature granulocytes -Initially when he came in he had a temperature of 100.6 and was tachycardic however the tachycardia has resolved as has his temperature -This could be mediated secondary to his initial cancer treatment with Taxol and carboplatin which was started on 06/28/2020 -He is also can resume radiation, per report this is inoperable -Given the left shift we will also place him on vancomycin and Zosyn since the only source of infection left since his skin is fine is potentially the port -Blood cultures and urine cultures are pending to help guide care -Respiratory panel was pending, Covid negative -Continue with IV fluids 2. HTN -Blood pressure is stable, though he thinks possibly his syncope was secondary to his hypotension because he is normally sits in the 160s to 170s and is currently 128 systolic -His syncope was likely related to his febrile illness and was vasovagal in origin -Continue with IV fluids -We will hold off on restarting his Norvasc, hydrochlorothiazide, or losartan 3. BPH -Stable -Continue with Flomax DVT: Lovenox OBSV E&M: [id number] Initial observation care L3
[2020-07-09] MEDS: 0.9% Normal Saline 1,000 ML 100 ML IV (19:40)
--- NOTE | 2020-07-09 20:16 | PCM.RX.CS ---
Consult Pharmacy has been consulted to manage selected antiobiotic: Vancomycin Type of Consult: New start Suspected Infection: Other Prior Doses of Antibiotics Received/Current Regimen: Medications Vancomycin HCl (Vancomycin) 1,000 mg in 200 mls @ 200 mls/hr IV Q12H KEE Vancomycin HCl 2,000 mg/ (Sodium Chloride) 540 mls @ 250 mls/hr IV X1 ONE Stop: 07/09/20 22:09 Last Admin: 07/09/20 20:07 Dose: 250 mls/hr Labs: Sodium 129 mmol/L (136-145) L 07/09/20 16:35 Potassium 4.3 mmol/L (3.5-5.1) 07/09/20 16:35 Chloride 97 mmol/L (98-107) L 07/09/20 16:35 Carbon Dioxide 25.0 mmol/L (21.0-32.0) 07/09/20 16:35 Anion Gap 7 (5-15) 07/09/20 16:35 BUN 31 mg/dL (7-18) H 07/09/20 16:35 Creatinine 1.17 mg/dL (0.70-1.30) 07/09/20 16:35 Est GFR (MDRD) Af Amer 79 mL/min (>60) 07/09/20 16:35 Est GFR (MDRD) Non-Af 65 mL/min (>60) 07/09/20 16:35 BUN/Creatinine Ratio 26.5 RATIO (10-20) H 07/09/20 16:35 Glucose 125 mg/dL (74-106) H 07/09/20 16:35 Microbiology: Microbiology 07/09/20 16:28 Mucosa - Nose SARS-CoV-2 Antigen (Rapid) - Final 07/09/20 16:28 Mucosa - Nose Respiratory Panel (PCR) - Final Weight used for dosin.8 kg Estimated Creatinine Clearance: 62 Goal Trough: 15-20 mcg/mL Pharmacy Plan for Drug Dosing: Pharmacy Service will continue to monitor and adjust dosing as required. Follow-Up Labs: Trough Vancomycin Labs to be done on [date and time ordered]: 07/11/20 @2483
[2020-07-09] MEDS: Finasteride 5 MG Tablet PO (22:34)
[2020-07-09] MEDS: Tamsulosin HCl 0.4 MG Capsule PO (22:35)
[2020-07-10] VITALS (8 sets, daily range): BP systolic 114–149; BP diastolic 47–91; PULSE 89–107; RESP 14–18; TEMP 36.6–38.3; O2SAT 94–99
[2020-07-10 06:42] LABS: Absolute Neutrophil Count 4.8 X10^3/uL (2.0-7.7); Basophil# 0.02 X10^3/uL; Basophil% 0.4 % (0-1); Eosinophil# 0.02 X10^3/uL; Eosinophils% 0.4 % (0-5); Hematocrit 24.4 % (40-54); Lymphocyte % 3.6 % (19-41); Mean Corp Hgb Conc 32.8 g/dL (32-36); Mean Corpuscular Hgb 25.9 pg (27.0-32.0); Mean Platelet Vol. 9.5 fl (6.2-12.0); Monocyte# 0.21 X10^3/uL; Monocyte% 3.8 % (0-10); NRBC Flagged by Analyzer 0 % (0-5); Neutrophil # 4.81 X10^3/uL (2.7-7.7); Neutrophil % 86.9 % (47-70); POSITIVE DIFFERENTIAL YES; Platelet Count 383 K/mm3 (150-450); RBC Distribution Width CV 17.6 % (11.6-14.6); RBC Distribution Width SD 48.3 fl (35.1-43.9); Red Blood Count 3.09 M/mm3 (4.6-6.2); White Blood Count 5.5 K/mm3 (4.4-11.0)
[2020-07-10 06:53] LABS: Differential Indicated SCAN CRITERIA MET
[2020-07-10 07:06] LABS: Anion Gap 7 (5-15); BUN 23 mg/dL (7-18); Calcium,Total 7.9 mg/dL (8.5-10.1); Chloride 103 mmol/L (98-107); Creatinine, Serum 0.88 mg/dL (0.70-1.30); EST Glomerular Filtration Rate 90 mL/min (>60); Est Glom Filt Rate - Afr Amer 109 mL/min (>60); Estimated Creatinine Clearance 84.41 ml/min; Glucose 80 mg/dL (74-106); Potassium 4.2 mmol/L (3.5-5.1); Sodium Level 133 mmol/L (136-145)
[2020-07-10] MEDS: Cholecalciferol (VIT D3) 25 MCG TABLET (1,000 UNITS) PO (08:07)
[2020-07-10] MEDS: Enoxaparin 40 MG/0.4 ML Syringe SC (08:08)
[2020-07-10] MEDS: Acetaminophen 325 MG Tablet 650 MG PO ×3 (08:08→22:44)
[2020-07-10] MEDS: Vancomycin IV 1,000 MG/200 ML BAG 200 MG IV ×2 (08:08→20:16)
[2020-07-10] MEDS: 0.9% Normal Saline 1,000 ML 100 ML IV ×2 (08:09→20:16)
--- NOTE | 2020-07-10 11:00 | NURSING ---
1025, pt transported via [facility] over to the cancer center for his daily radiation.
--- NOTE | 2020-07-10 11:02 | PN_ITS ---
Subjective: Patient seen and examined. He has no complaints this morning. Fever and chills have resolved. Tachycardia and tachypnea have also resolved. Blood cultures are pending. Review of systems is otherwise negative. Vitals/I&O's: Vital Signs Temp Pulse Resp BP Pulse Ox 98.0 F 94 16 120/70 94 07/10/20 08:11 07/10/20 08:11 07/10/20 08:11 07/10/20 08:11 07/10/20 08:11 Oxygen Delivery Method Room Air Weight: 168 lb 6.931 oz Body Mass Index (BMI) 22.8 Orthostatic Vital Signs Start: 07/10/20 02:10 Freq: q24h Status: Active Protocol: Activity Type Activity Date Activity User E-Sign Co-Sign Detail Recorded Client Recorded Date Recorded By Document 07/10/20 02:10 KM [id number] 07/10/20 02:14 KM 07/10/20 02:10 Orthostatic Vitals Standing -Blood Pressure (90/60-120/80) 149/66 H -Extremity Use Left Arm -Pulse Rate (60-100) 107 H Sitting -Blood Pressure (90/60-120/80) 146/91 H -Extremity Use Left Arm -Pulse Rate (60-100) 102 H Lying -Blood Pressure (90/60-120/80) 141/62 H -Extremity Use Left Arm -Pulse Rate (60-100) 99 Intake and Output for Last 24 Hours 07/08/20 07/09/20 07/10/20 23:59 23:59 23:59 Intake Total 1635.25 / 1635.25 1259.67 / 1259.67 Balance 1635.25 / 1635.25 1259.67 / 1259.67 General: Alert, Oriented x3, Cooperative, No apparent distress HEENT: Atraumatic, PERRLA, EOMI, Normocephalic Oral: Dry Mucosa Neck: Supple, No JVD, Negative Carotid Bruits Lungs: Clear to auscultation, Normal air movement, No rhonchi, No wheeze Cardiovascular: Regular rate, Regular Rhythm, Normal S1, Normal S2, No murmurs Abdomen: Bowel Sounds Present, Soft, Non Tender, Non-Distended, No Hepato- splenomegaly Extremities: No clubbing, No cyanosis, No edema, Capillary Refill Less than 3 Seconds Skin: No rashes, No breakdown Musculoskeletal: - - right sided chemotherapy port Lymphatic: No Cervical, Supraclavicular, or Inguinal Adenopathy Neurological: Cranial nerves II-XII grossly intact, Neuro grossly intact, Motor Exam 5/5 strength throughout Psych/Mental Status: Normal Affect, Appropriate, Alert and oriented to time, place, person, mood and affect Microbiology Past 72 Hours 07/09/20 17:10 Urine, Clean Catch Urine Culture - Preliminary Culture exhibits no growth. 07/09/20 16:28 Mucosa - Nose SARS-CoV-2 Antigen (Rapid) - Final 07/09/20 16:28 Mucosa - Nose Respiratory Panel (PCR) - Final Laboratory Results 07/09/20 16:35: WBC 8.5, RBC 3.22 L, Hgb 8.5 L, Hct 25.2 L, MCV 78.3 L, MCH 26.4 L, MCHC 33.7, RDW Std Deviation 47.9 H, RDW Coeff of [place] 17.6 H, Plt Count 395, MPV 9.2, Immature Gran % (Auto) 2.100 H, Neut % (Auto) 90.0 H, Lymph % (Auto) 4.4 L, [place] % (Auto) 2.7, Eos % (Auto) 0.4, Baso % (Auto) 0.4, Absolute Neuts (auto) 7.6, Absolute Lymphs (auto) 0.37 L, Nucleated RBC % 0, Differential Comment SCANNED, Platelet Estimate ADEQUATE, Hypochromasia 1+, Anisocytosis 2+, Microcytosis 1+, Target Cells RARE, Acanthocytes (Spur) RARE, Schistocytes RARE 07/09/20 16:35: PT 15.6 H, INR 1.3, APTT 31.9 07/09/20 16:35: Sodium 129 L, Potassium 4.3, Chloride 97 L, Carbon Dioxide 25.0, Anion Gap 7, BUN 31 H, Creatinine 1.17, Estim Creat Clear Calc 62.19, Est GFR (MDRD) Af Amer 79, Est GFR (MDRD) Non-Af 65, BUN/Creatinine Ratio 26.5 H, Glucose 125 H, Calcium 7.7 L, Total Bilirubin 0.30, AST 19, ALT 29, Alkaline Phosphatase 141 H, Total Protein 5.8 L, Albumin 1.9 L, Globulin 3.9, Albumin /Globulin Ratio 0.5 L 07/09/20 16:35: Lactic Acid 1.5 07/09/20 17:10: Urine Color Yellow, Urine Clarity Sl. Cloudy, Urine pH 7.0, Ur Specific [place] 1.005, Urine Protein 30 H, Urine Glucose (UA) 250 H, Urine Ketones Negative, Urine Occult Blood 10 H, Urine Nitrite Negative, Urine Biliru bin Negative, Urine Urobilinogen 1 H, Ur Leukocyte Esterase Negative, Urine RBC 0-5 SEEN, Urine WBC 0 SEEN, Ur Squamous Epith Cells 0-5 SEEN, Amorphous Sediment 1+ PHOS, Urine Bacteria 0 SEEN, Urine Mucus 0 SEEN 07/10/20 06:20: WBC 5.5, RBC 3.09 L, Hgb 8.0 L, Hct 24.4 L, MCV 79.0 L, MCH 25.9 L, MCHC 32.8, RDW Std Deviation 48.3 H, RDW Coeff of [place] 17.6 H, Plt Count 383, MPV 9.5, Immature Gran % (Auto) 4.900 H, Neut % (Auto) 86.9 H, Lymph % (Auto) 3.6 L, [place] % (Auto) 3.8, Eos % (Auto) 0.4, Baso % (Auto) 0.4, Absolute Neuts (auto) 4.8, Absolute Lymphs (auto) 0.20 L, Nucleated RBC % 0 07/10/20 06:20: Sodium 133 L, Potassium 4.2, Chloride 103, Carbon Dioxide 23.0, Anion Gap 7, BUN 23 H, Creatinine 0.88, Estim Creat Clear Calc 84.41, Est GFR (MDRD) Af Amer 109, Est GFR (MDRD) Non-Af 90, BUN/Creatinine Ratio 26.0 H, Glucose 80, Calcium 7.9 L Diagnostic Data Chest X-Ray 07/09/20 16:42 IMPRESSION: Stable exam compared to prior study on 06/29/2020. Electronically Signed: Brad Patel MD at 17:00 EDT Tel , Service support , Current Medications Acetaminophen (Acetaminophen 325 Mg Tablet) 650 mg PO Q6H PRN PRN PRN Reason: Pain Score 1-10/Temp > 100.7 F Last Admin: 07/10/20 08:08 Dose: 650 mg Documented by: Amitriptyline HCl (Amitriptyline 25 Mg Tablet) 25 mg PO QHS [facility] Cholecalciferol (Cholecalciferol (Vit D3) 25 Mcg Tablet (1,000 Units)) 25 mcg PO DAILY [facility] Last Admin: 07/10/20 08:07 Dose: 25 mcg Documented by: Enoxaparin Sodium (Enoxaparin 40 Mg/0.4 Ml Syringe) 40 mg SC DAILY [facility] Last Admin: 07/10/20 08:08 Dose: 40 mg Documented by: Finasteride (Finasteride 5 Mg Tablet) 5 mg PO QHS [facility] Last Admin: 07/09/20 22:34 Dose: 5 mg Documented by: Heparin Sodium (Beef Lung) (Heparin Pf Lock 10 Units/Ml 50 Units/5 Ml Syringe) 50 units IV UD PRN PRN Reason: Port-a-Cath (VAD)Heparin Flush Sodium Chloride () 1,000 mls @ 100 mls/hr IV .Q10H [facility] Last Infusion: 07/10/20 09:10 Dose: 100 mls/hr Documented by: Piperacillin Sod/Tazobactam (Sod 3.375 gm/ Sodium Chloride) 50 mls @ 12.5 mls/hr IV Q8 [facility] Last Admin: 07/10/20 06:08 Dose: 12.5 mls/hr Documented by: Vancomycin IV Pharmacy to Dose (1 each/ Sodium Chloride) 500 mls @ 250 mls/hr IV PRN PRN; Protocol PRN Reason: Rx to Dose Sodium Chloride () 250 mls @ 15 mls/hr IV .[id number] PRN PRN Reason: Saline Flush Last Infusion: 07/10/20 06:08 Dose: 0 mls/hr Documented by: Sodium Chloride () 250 mls @ 15 mls/hr IV .[id number] PRN PRN Reason: Additional IVPB Infusion Vancomycin HCl (Vancomycin) 1,000 mg in 200 mls @ 200 mls/hr IV Q12H [facility] Last Infusion: 07/10/20 09:10 Dose: Infused Documented by: Lactobacillus Acidophilus (Lactobacillus Acidophilus) 1 tablet PO DAILY [facility] Last Admin: 07/10/20 08:07 Dose: 1 tablet Documented by: Lidocaine/Prilocaine (Lidocaine/Prilocaine Hcl 5 Gm Tube) 1 gm TOPICAL DAILY PRN PRN; Protocol PRN Reason: pre-chemo for port Melatonin (Melatonin 3 Mg Tablet) 3 mg PO QHS PRN PRN PRN Reason: INSOMNIA Ondansetron HCl (Ondansetron 4 Mg/2 Ml Vial) 4 mg IV Q8H PRN PRN PRN Reason: NAUSEA/VOMITING Salsalate (Salsalate 750 Mg Tablet) [facility] Last Admin: 07/10/20 08:14 Dose: 750 mg Documented by: Sodium Chloride (0.9% Saline Lock 10 Ml Syringe) 10 - 40 ml IV UD PRN PRN Reason: Port-a-Cath (VAD) Flush Sodium Chloride (0.9 % Nacl (Sterile) Posiflush 10 Ml) 10 - 40 ml IV UD PRN PRN Reason: Port access or dressing change Tamsulosin HCl (Tamsulosin Hcl 0.4 Mg Capsule) 0.4 mg PO QHS [facility] Last Admin: 07/09/20 22:35 Dose: 0.4 mg Documented by: STROKE Vital Signs/Narrative: Vital Signs Temp Pulse Resp BP Pulse Ox 07/10/20 08:11 98.0 F 94 16 120/70 94 Medical Necessity - Tobacco Use Smoking Status: Former smoker Tobacco Use: Cigarettes Assessment/Plan All Active Problems (Last Reviewed 07/05/20 @ 09:14 by Ladonna Swanson RN) 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 COVID test was negative * #Hyponatremia; sodium was 129, and is now 133. Will continue gentle hydration with IVF #Anemia: * Hb is 8, was 8.5 on admission. This is a microcytic, normochromic anemia. * baseline Hemoglobin is around 10. Will monitor. Check iron panel. #History of lung cancer * started chemotherapy 2 weeks ago * to follow up with oncology on outpatient basis * #Hypertension * BP meds held on admission as he said it was a syncopal event. Orthostatics are negative. * Pressure running in the 110s and 120s. We will continue holding BP meds and monitor. * #BPH: On Flomax DVT prophylaxis: lovenox Inpatient E&M: [id number] Subs Hosp L2
[2020-07-10] MEDS: Tamsulosin HCl 0.4 MG Capsule PO (22:44)
[2020-07-10] MEDS: Amitriptyline 25 MG Tablet PO (22:44)
[2020-07-10] MEDS: Finasteride 5 MG Tablet PO (22:44)
[2020-07-10] MEDS: MELATONIN 3 MG TABLET PO (22:44)
[2020-07-11 02:40] VITALS: BP 108/60; PULSE 91; RESP 18; TEMP 36.6; O2SAT 98
[2020-07-11] MEDS: 0.9% Saline Lock 10 ML Syringe IV ×3 (02:44→17:00)
[2020-07-11] MEDS: 0.9% Normal Saline 1,000 ML 100 ML IV (05:44)
[2020-07-11] MEDS: Acetaminophen 325 MG Tablet 650 MG PO (05:47)
[2020-07-11 05:56] LABS: Absolute Lymphocyte Count 0.34 X10^3/uL (0.83-4.51); Absolute Neutrophil Count 5.9 X10^3/uL (2.0-7.7); Basophil# 0.02 X10^3/uL; Basophil% 0.3 % (0-1); Eosinophil# 0.04 X10^3/uL; Eosinophils% 0.6 % (0-5); Hematocrit 27.3 % (40-54); Hemoglobin 8.6 g/dL (13.0-16.5); Lymphocyte # 0.34 X10^3/ul (4.0); Lymphocyte % 5.2 % (19-41); Mean Corp Hgb Conc 31.5 g/dL (32-36); Mean Corpuscular Volume 82.5 fL (80-94); Mean Platelet Vol. 9.6 fl (6.2-12.0); Monocyte# 0.27 X10^3/uL; Monocyte% 4.1 % (0-10); NRBC Flagged by Analyzer 0 % (0-5); Neutrophil # 5.88 X10^3/uL (2.7-7.7); POSITIVE DIFFERENTIAL YES; Platelet Count 398 K/mm3 (150-450); RBC Distribution Width CV 18.7 % (11.6-14.6); RBC Distribution Width SD 53.4 fl (35.1-43.9); Red Blood Count 3.31 M/mm3 (4.6-6.2); White Blood Count 6.6 K/mm3 (4.4-11.0)
[2020-07-11 05:57] LABS: Differential Indicated SCAN CRITERIA MET
[2020-07-11 06:24] LABS: Anion Gap 4 (5-15); BUN 21 mg/dL (7-18); Calcium,Total 8.4 mg/dL (8.5-10.1); Chloride 107 mmol/L (98-107); Creatinine, Serum 0.91 mg/dL (0.70-1.30); EST Glomerular Filtration Rate 87 mL/min (>60); Est Glom Filt Rate - Afr Amer 105 mL/min (>60); Estimated Creatinine Clearance 81.62 ml/min; Glucose 99 mg/dL (74-106); Potassium 3.8 mmol/L (3.5-5.1); Sodium Level 134 mmol/L (136-145)
[2020-07-11 08:14] VITALS: BP 124/68; PULSE 119; RESP 16; TEMP 36.8; O2SAT 95
[2020-07-11 08:15] LABS: Vancomycin, Trough Level 11.9 ug/mL (5.0-15.0)
[2020-07-11] MEDS: Cholecalciferol (VIT D3) 25 MCG TABLET (1,000 UNITS) PO (08:18)
[2020-07-11] MEDS: Enoxaparin 40 MG/0.4 ML Syringe SC (08:18)
[2020-07-11] MEDS: Vancomycin IV 1,000 MG/200 ML BAG 200 MG IV (08:21)
--- NOTE | 2020-07-11 08:31 | PCM.RX.CS ---
Consult Pharmacy has been consulted to manage selected antiobiotic: Vancomycin Type of Consult: Follow-up Prior Doses of Antibiotics Received/Current Regimen: current dose is 1000mg q12h Labs: Sodium 134 mmol/L (136-145) L 07/11/20 05:32 Potassium 3.8 mmol/L (3.5-5.1) 07/11/20 05:32 Chloride 107 mmol/L (98-107) 07/11/20 05:32 Carbon Dioxide 23.0 mmol/L (21.0-32.0) 07/11/20 05:32 Anion Gap 4 (5-15) L 07/11/20 05:32 BUN 21 mg/dL (7-18) H 07/11/20 05:32 Creatinine 0.91 mg/dL (0.70-1.30) 07/11/20 05:32 Est GFR (MDRD) Af Amer 105 mL/min (>60) 07/11/20 05:32 Est GFR (MDRD) Non-Af 87 mL/min (>60) 07/11/20 05:32 BUN/Creatinine Ratio 23.0 RATIO (10-20) H 07/11/20 05:32 Glucose 99 mg/dL (74-106) 07/11/20 05:32 Vancomycin Trough 11.9 ug/mL (5.0-15.0) 07/11/20 07:25 Microbiology: Microbiology 07/09/20 17:10 Urine, Clean Catch Urine Culture - Preliminary Culture exhibits no growth. 07/09/20 16:28 Mucosa - Nose SARS-CoV-2 Antigen (Rapid) - Final 07/09/20 16:28 Mucosa - Nose Respiratory Panel (PCR) - Final Weight used for dosin.4 kg Estimated Creatinine Clearance: 82 ml/min Goal Trough: 15-20 mcg/mL Pharmacy Plan for Drug Dosing: Trough drawn before this morning's dose was 11.9. This is below goal range so will increase next dose to 1250mg IV q12h. Repeat trough before the 4th new dose. Pharmacy Service will continue to monitor and adjust dosing as required. Follow-Up Labs: Trough Vancomycin Labs to be done on [date and time ordered]: 07/13/20 07:30
--- NOTE | 2020-07-11 10:13 | CASEMGMT ---
ANSHUL MILLER Assessment: Face to Face with pt for initial transition planning/care coordination assessment. ANSHUL MILLER introduced self and role at [facility], pt voices understanding and consents to assessment. Pt is A/O x4 and answers all questions appropriately at this time. Pt sitting up in bed in no distress. Care providers, pharmacy, and demographics verified/updated. Admitting Dx: fever and syncope PCP: Cody Abraham at [facility] Specialists: Oncologist at [facility]- pt is unsure of name Preferred Pharmacy: [facility] Insurance: [facility] benefits, [facility] A Prescription Benefit: yes LW/HPOA: Pt states he does not have LW/DPOA. States he needs to do that. He declines info on AD. LNOK: Anjel, dtrAdali and dtrMike Living Arrangements: Pt lives with in a 2 story home, first floor only utilized with 4 steps to enter with rail. Pt reports independence in ADL's. Denies concerns at home. Transportation: Pt drives self DME/HHC/SNF: Pt has a BP cuff at home. Denies need for DME. Pt denies history of HH or SNF stays. [facility]. Pt declined services as he states he does not need this yet. He has the phone number if he should change his mind. Pt states no concerns with going home at time of dc. Pt states no further concerns/needs. Advised pt to ask CM if any further question/concerns/needs arise, voices understanding. Pt Goal: home Plan: Home with family support and follow up plans in place.
--- NOTE | 2020-07-11 11:41 | DS.PCM_ITS ---
Discharge Date and Diagnosis Date of Admission: 07/09/20 Date of Discharge: 07/11/20 - Primary Discharge Diagnosis Acute Problems: fever of unknown origin syncope Hospital Course and Treatment Imaging Results: Diagnostic Data Chest X-Ray 07/09/20 16:42 IMPRESSION: Stable exam compared to prior study on 06/29/2020. Electronically Signed: Brad Patel MD at 17:00 EDT Tel , Service support , Operations: None Procedures: None Summary of Care Provided: The patient is a 69 year old M with a past medical history as outlined which includes non-small cell lung cancer. He was admitted through the ED on 07/09/2020 with a complaint of fever and chills as well as syncope in the morning of admission. He also had assisted chills and his fever was up to 102 Fahrenheit. He also had an episode of dizziness and lightheadedness and syncope. Patient had started chemotherapy for stage IIIb non-small cell lung cancer and had a port placed about 10 days ago. Urinalysis was negative and chest x-ray showed no evidence of pneumonia. Covid test was also negative and respiratory panel was negative. He was admitted and managed for fever of unknown origin in the known constipation. Since he had recently had a port placed, he was covered with empiric IV antibiotics and started on IV vancomycin and Zosyn. Blood cultures were obtained. Patient's fever resolved and he felt well during his stay. Urine culture was negative and blood cultures showed no growth at time of discharge. Patient remained stable and was discharged home on 07/11/2020. He is to follow-up with his primary care doctor and is to follow-up with his oncologist as well as radiation oncologist. Patient seen and examined prior to discharge. He had no complaints and felt well. Review of systems otherwise negative. Labs and vitals reviewed. Medication reviewed and reconciled. O/E: Vital Signs Temp Pulse Resp BP Pulse Ox 98.3 F 119 H 16 124/68 H 95 07/11/20 08:14 07/11/20 08:14 07/11/20 08:14 07/11/20 08:14 07/11/20 08:14 [] General: Alert, Oriented x3, Cooperative, No apparent distress HEENT: Atraumatic, PERRLA, EOMI, Normocephalic Oral: Dry Mucosa Neck: Supple, No JVD, Negative Carotid Bruits Lungs: Clear to auscultation, Normal air movement, No rhonchi, No wheeze Cardiovascular: Regular rate, Regular Rhythm, Normal S1, Normal S2, No murmurs Abdomen: Bowel Sounds Present, Soft, Non Tender, Non-Distended, No Hepato- splenomegaly Extremities: No clubbing, No cyanosis, No edema, Capillary Refill Less than 3 Seconds Skin: No rashes, No breakdown Musculoskeletal: - - chemotherapy port in place Lymphatic: No Cervical, Supraclavicular, or Inguinal Adenopathy Neurological: Cranial nerves II-XII grossly intact, Neuro grossly intact, Motor Exam 5/5 strength throughout Psych/Mental Status: Normal Affect, Appropriate, Alert and oriented to time, place, person, mood and affect Plan is for discharge home. - Physical Exam Vitals/I&O's: Vital Signs Temp Pulse Resp BP Pulse Ox 98.3 F 119 H 16 124/68 H 95 07/11/20 08:14 07/11/20 08:14 07/11/20 08:14 07/11/20 08:14 07/11/20 08:14 Oxygen Delivery Method Room Air Weight: 168 lb 6.931 oz Body Mass Index (BMI) 22.8 Orthostatic Vital Signs Start: 07/10/20 02:10 Freq: Status: Active Protocol: Activity Type Activity Date Activity User E-Sign Co-Sign Detail Recorded Client Recorded Date Recorded By Document 07/10/20 02:10 KM [id number] 07/10/20 02:14 KM 07/10/20 02:10 Orthostatic Vitals Standing -Blood Pressure (90/60-120/80 mm Hg) 149/66 H -Extremity Use Left Arm -Pulse Rate (60-100 beats/min) 107 H Sitting -Blood Pressure (90/60-120/80 mm Hg) 146/91 H -Extremity Use Left Arm -Pulse Rate (60-100 beats/min) 102 H Lying -Blood Pressure (90/60-120/80 mm Hg) 141/62 H -Extremity Use Left Arm -Pulse Rate (60-100 beats/min) 99 Intake and Output for Last 24 Hours 07/09/20 07/10/20 07/11/20 23:59 23:59 23:59 Intake Total 1635.25 / 1635.25 3508.00 / 3508.00 1813.34 / 1813.34 Balance 1635.25 / 1635.25 3508.00 / 3508.00 1813.34 / 1813.34 Microbiology Past 72 Hours 07/09/20 17:10 Urine, Clean Catch Urine Culture - Preliminary Culture exhibits no growth. 07/09/20 16:28 Mucosa - Nose SARS-CoV-2 Antigen (Rapid) - Final 07/09/20 16:28 Mucosa - Nose Respiratory Panel (PCR) - Final Laboratory Results 07/11/20 05:32: WBC 6.6, RBC 3.31 L, Hgb 8.6 L, Hct 27.3 L, MCV 82.5, MCH 26.0 L , MCHC 31.5 L, RDW Std Deviation 53.4 H, RDW Coeff of Hill 18.7 H, Plt Count 398, MPV 9.6, Immature Gran % (Auto) 0.800, Neut % (Auto) 89.0 H, Lymph % (Auto) 5.2 L, Geary % (Auto) 4.1, Eos % (Auto) 0.6, Baso % (Auto) 0.3, Absolute Neuts (auto) 5.9, Absolute Lymphs (auto) 0.34 L, Nucleated RBC % 0 07/11/20 05:32: Sodium 134 L, Potassium 3.8, Chloride 107, Carbon Dioxide 23.0, Anion Gap 4 L, BUN 21 H, Creatinine 0.91, Estim Creat Clear Calc 81.62, Est GFR (MDRD) Af Amer 105, Est GFR (MDRD) Non-Af 87, BUN/Creatinine Ratio 23.0 H, Glucose 99, Calcium 8.4 L 07/11/20 07:25: Vancomycin Trough 11.9 Current Medications Acetaminophen (Acetaminophen 325 Mg Tablet) 650 mg PO Q6H PRN PRN PRN Reason: Pain Score 1-10/Temp > 100.7 F Last Admin: 07/11/20 05:47 Dose: 650 mg Documented by: Amitriptyline HCl (Amitriptyline 25 Mg Tablet) 25 mg PO QHS KEE Last Admin: 07/10/20 22:44 Dose: 25 mg Documented by: Cholecalciferol (Cholecalciferol (Vit D3) 25 Mcg Tablet (1,000 Units)) 25 mcg PO DAILY [facility] Last Admin: 07/11/20 08:18 Dose: 25 mcg Documented by: Enoxaparin Sodium (Enoxaparin 40 Mg/0.4 Ml Syringe) 40 mg SC DAILY [facility] Last Admin: 07/11/20 08:18 Dose: 40 mg Documented by: Finasteride (Finasteride 5 Mg Tablet) 5 mg PO QHS [facility] Last Admin: 07/10/20 22:44 Dose: 5 mg Documented by: Heparin Sodium (Beef Lung) (Heparin Pf Lock 10 Units/Ml 50 Units/5 Ml Syringe) 50 units IV UD PRN PRN Reason: Port-a-Cath (VAD)Heparin Flush Sodium Chloride () 1,000 mls @ 100 mls/hr IV .Q10H [facility] Last Infusion: 07/11/20 09:21 Dose: 100 mls/hr Documented by: Piperacillin Sod/Tazobactam (Sod 3.375 gm/ Sodium Chloride) 50 mls @ 12.5 mls/hr IV Q8 [facility] Last Infusion: 07/11/20 09:45 Dose: Infused Documented by: Vancomycin IV Pharmacy to Dose (1 each/ Sodium Chloride) 500 mls @ 250 mls/hr IV PRN PRN; Protocol PRN Reason: Rx to Dose Sodium Chloride () 250 mls @ 15 mls/hr IV .[id number] PRN PRN Reason: Saline Flush Last Infusion: 07/10/20 06:08 Dose: 0 mls/hr Documented by: Sodium Chloride () 250 mls @ 15 mls/hr IV .[id number] PRN PRN Reason: Additional IVPB Infusion Vancomycin HCl 1,250 mg/ (Sodium Chloride) 275 mls @ 167 mls/hr IV Q12H [facility] Lactobacillus Acidophilus (Lactobacillus Acidophilus) 1 tablet PO DAILY [facility] Last Admin: 07/11/20 08:18 Dose: 1 tablet Documented by: Lidocaine/Prilocaine (Lidocaine/Prilocaine Hcl 5 Gm Tube) 1 gm TOPICAL DAILY PRN PRN; Protocol PRN Reason: pre-chemo for port Melatonin (Melatonin 3 Mg Tablet) 3 mg PO QHS PRN PRN PRN Reason: INSOMNIA Last Admin: 07/10/20 22:44 Dose: 3 mg Documented by: Ondansetron HCl (Ondansetron 4 Mg/2 Ml Vial) 4 mg IV Q8H PRN PRN PRN Reason: NAUSEA/VOMITING Salsalate ([facility]ate 750 Mg Tablet) [facility] Last Admin: 07/11/20 08:18 Dose: 750 mg Documented by: Sodium Chloride (0.9% Saline Lock 10 Ml Syringe) 10 - 40 ml IV UD PRN PRN Reason: Port-a-Cath (VAD) Flush Last Admin: 07/11/20 02:44 Dose: 10 ml Documented by: Sodium Chloride (0.9 % Nacl (Sterile) Posiflush 10 Ml) 10 - 40 ml IV UD PRN PRN Reason: Port access or dressing change Tamsulosin HCl (Tamsulosin Hcl 0.4 Mg Capsule) [facility] Last Admin: 07/10/20 22:44 Dose: 0.4 mg Documented by: Discharge Diet: Low fat/ Low Cholesterol Discharge Activity: Return to Normal Activity Weight Bearing Status: Weight bearing as tolerated Call your doctor if you observe: Fever of 101 or Higher, Shortness of breath, Dizziness Home Medications: Medications to take at Discharge Finasteride [Proscar] 5 mg PO QHS 06/13/20 Losartan Potassium [Cozaar] 100 mg PO DAILY 06/13/20 Amlodipine [Norvasc] 5 mg PO QHS 06/14/20 Cholecalciferol (VIT D3) [Vitamin D3] 1,000 unit PO DAILY 06/14/20 Lactobacillus Combination No.8 [Adult Probiotic] 1 ea PO DAILY 06/14/20 Salsalate [Salsitab] 750 mg PO BID 06/14/20 Tamsulosin HCl [Flomax] 0.4 mg PO QHS 06/14/20 Ondansetron [Ondansetron Odt] 8 mg PO Q8H PRN PRN 10 Days #30 tab.rapdis 06/19/20 Amitriptyline HCl 25 mg PO QHS 06/22/20 Lidocaine/Prilocaine [Lidocaine-Prilocaine Cream] 1 applic TP DAILY PRN PRN 07/09/20 [facility] [[facility]] - Please follow up with your Primary Care Physician in: 1-2 weeks Please Follow Up With: Loyd Russell MD When: 1-2 weeks Patient Instructions: ED FUO Adult Disposition: Home Minutes spent on discharge:: 40 Patient Condition:: Stable Medical Necessity - Tobacco Use Smoking Status: Former smoker Tobacco Use: Cigarettes Meaningful Use Info Meaningful Use Diagnoses (Choose all that apply): None applicable Inpatient E&M: 53572 Disch Hosp
--- NOTE | 2020-07-11 11:41 | PCM.DC ---
You will use the following diet at home:: Cardiac Your food should be the consistency of: Regular Your liquids should be the consistency of: Regular/Thin Discharge Activity: Return to Normal Activity Weight Bearing Status: Weight bearing as tolerated Call your doctor if you observe: Fever of 101 or Higher, Shortness of breath, Dizziness Instructions: ED FUO Adult Allergies/Adverse Reactions: Allergies Iodinated Contrast Media [CONTRASTS] Allergy (Verified 07/09/20 16:12) Anaphylaxis Medications to take at Discharge Finasteride [Proscar] 5 mg PO QHS 06/13/20 Losartan Potassium [Cozaar] 100 mg PO DAILY 06/13/20 Amlodipine [Norvasc] 5 mg PO QHS 06/14/20 Cholecalciferol (VIT D3) [Vitamin D3] 1,000 unit PO DAILY 06/14/20 Lactobacillus Combination No.8 [Adult Probiotic] 1 ea PO DAILY 06/14/20 Salsalate [Salsitab] 750 mg PO BID 06/14/20 Tamsulosin HCl [Flomax] 0.4 mg PO QHS 06/14/20 Ondansetron [Ondansetron Odt] 8 mg PO Q8H PRN PRN 10 Days #30 tab.rapdis 06/19/20 Amitriptyline HCl 25 mg PO QHS 06/22/20 Lidocaine/Prilocaine [Lidocaine-Prilocaine Cream] 1 applic TP DAILY PRN PRN 07/09/20 Primary Care Physician: [facility] [Primary Care Provider] - Please follow up with your Primary Care Physician in: 1-2 weeks Test Results: Test results from this visit will be discussed in further detail at your follow-up appointment, if applicable. Please Follow Up With: Loyd Russell MD When: 1-2 weeks Proposed Discharge Date: 07/11/20
== END 2020-07-11 14:25 | disposition home or self-care (01) | DRG 864 ==
LOC: ED 18:10 → MS3 19:10
PROVIDERS: Admitting Provider Family Medicine; Emergency Provider Student in an Organized Health Care Education/Training Program; Visit Provider Student in an Organized Health Care Education/Training Program
DX: R50.9 Fever, unspecified (principal); C34.11 Malignant neoplasm of upper lobe, right bronchus or lung; C77.1 Secondary and unspecified malignant neoplasm of intrathoracic lymph nodes; E87.1 Hypo-osmolality and hyponatremia; R55 Syncope and collapse; I10 Essential (primary) hypertension; N40.0 Benign prostatic hyperplasia without lower urinary tract symptoms; J44.9 Chronic obstructive pulmonary disease, unspecified; D64.9 Anemia, unspecified; K59.00 Constipation, unspecified; Z79.899 Other long term (current) drug therapy; Z92.3 Personal history of irradiation; Z87.891 Personal history of nicotine dependence
CPT/HCPCS: 36415; 36591; 71045; 80048; 80053; 80202; 81001; 83605; 85025; 85610; 85730; 87040; 87086; 87426; 87633; 93005; 99285; J7030; J7040; J7050; A4216

== ENCOUNTER → 2020-09-11 13:33 | Outpatient (CLI) | payer OTHER, SELFPAY ==
[2020-06-13 10:11] VITALS: BMI 21.9
[2020-08-16 13:08] VITALS: BMI 21.8
[2020-09-07 15:00] VITALS: BMI 22.1
--- NOTE | 2020-09-11 13:34 | CT_ITS ---
STUDY: CT CHEST WITHOUT CONTRAST REASON FOR EXAM: Male, 69 years old. ASSESS TREATMENT RESPONSE RADIATION DOSAGE (If Supplied By Facility): CTDIvol = ( 9.49 ) mGy, DLP = ( 358.09 ) mGycm TECHNIQUE: Transaxial imaging was performed without the administration of intravenous contrast material. Multiplanar coronal and sagittal images were reformatted. Individualized dose optimization techniques were used for this CT. COMPARISON: Comparison is made with prior examination dated 04/18/2020 and 06/20/2020. FINDINGS: A left-sided Port-A-Cath is seen with the tip in the superior vena cava. The previously seen right apical pulmonary mass has decreased in size. It presently measures 3.3 cm x 3 cm. It previously measured 6 hours by 6.6 cm. There now is evidence of multiple cystic spaces in the medial aspect of the right upper lobe as well as the medial aspect of the superior segment of the right lower lobe and right middle lobe. 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 Mild degree of increased markings with cystic changes along the medial aspect of the left upper lobe. These are new as compared to prior study and most likely represents post radiation fibrosis. There is no demonstrated pleural abnormality. There are calcifications of the coronary arteries. Normal mediastinum. Normal hilar regions. Normal unenhanced pulmonary arteries. There is atherosclerotic calcification of the aortic arch with tortuosity and elongation of the aortic arch and descending thoracic aorta. There are mild degenerative changes of the thoracic spine. There is no demonstrated abnormality of the visualized upper abdomen. 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 Electronically Signed: Jas Tejada MD at 15:18 EDT , Service support ,
[2020-09-11] MEDS: 0.9% Saline Lock 10 ML Syringe IV (13:43)
== END ==
PROVIDERS: Referring Provider Internal Medicine Medical Oncology; Visit Provider Internal Medicine Medical Oncology
DX: C34.90 Malignant neoplasm of unspecified part of unspecified bronchus or lung (principal); C77.1 Secondary and unspecified malignant neoplasm of intrathoracic lymph nodes
CPT/HCPCS: 71250; A4216

== ENCOUNTER → 2020-12-08 13:05 | Outpatient (CLI) | payer OTHER, SELFPAY ==
[2020-06-13 10:11] VITALS: BMI 21.9
--- NOTE | 2020-12-08 13:08 | CT_ITS ---
STUDY: CT CHEST WITHOUT CONTRAST REASON FOR EXAM: Male, 70 years old. Assess response to treatment RADIATION DOSAGE (If Supplied By Facility): CTDIvol = ( 6.73 ) mGy, DLP = ( 255.81 ) mGycm TECHNIQUE: Transaxial imaging was performed without the administration of intravenous contrast material. Individualized dose optimization techniques were used for this CT. COMPARISON: 09/11/2020 FINDINGS: Left subclavian chest port. No change in the 3.0 x 3.3 cm mass in the apex of the right lung consistent with known treated bronchogenic carcinoma. Also no change in the scarring in the right upper lobe likely from radiation therapy. Alveolar density in the lower right lung consistent with right lower lobe pneumonia. Mild emphysematous changes. There is no demonstrated pleural abnormality. Normal heart and pericardium. There are calcifications of the coronary arteries. Normal mediastinum. Normal hilar regions. Normal unenhanced pulmonary arteries. Normal aorta arch and descending thoracic aorta. Normal osseous structures. There is no demonstrated abnormality of the visualized upper abdomen. CT/Chest without Contrast IMPRESSION: 1. No change in treated right apical bronchogenic carcinoma with scarring throughout the right upper lobe. 2. Interval development of right lower lobe pneumonia with new alveolar density. Electronically Signed: Tee Sandy MD at 14:05 EDT Tel , Service support ,
== END ==
PROVIDERS: Referring Provider Nurse Practitioner Family; Visit Provider Nurse Practitioner Family
DX: C34.91 Malignant neoplasm of unspecified part of right bronchus or lung (principal); C34.90 Malignant neoplasm of unspecified part of unspecified bronchus or lung; C77.1 Secondary and unspecified malignant neoplasm of intrathoracic lymph nodes
CPT/HCPCS: 71250

== ENCOUNTER → 2021-01-03 07:16 | Outpatient (CLI) | payer OTHER, SELFPAY ==
[2020-06-13 10:11] VITALS: BMI 21.9
--- NOTE | 2021-01-03 07:18 | RAD_ITS ---
STUDY: X-RAY CHEST REASON FOR EXAM: Male, 70 years old. Right lower lobe infiltrate. TECHNIQUE: Frontal view of the chest COMPARISON: CT chest dated 12/08/20. FINDINGS: There is a left-sided port with its tip in the superior vena cava. Again noted is a nodular density in the right apex, consistent with the patient''s known mass. This is not significantly changed. There are mild patchy airspace opacities in the right lower lobe which are improved when compared with the prior exam. The left lung is clear. There are no pleural effusions. There is no pneumothorax. The heart is normal in size. The visualized osseous structures are within normal limits. RAD/Chest PA and Lateral IMPRESSION: Mild patchy airspace opacities in the right lower lobe which are improved when compared with the CT dated 12/08/20. No significant change in the nodular density in the right apex, consistent with the patient''s known mass. Electronically Signed: Godfrey Pickens MD at 16:58 EDT Tel , Service support ,
== END ==
PROVIDERS: Visit Provider Student in an Organized Health Care Education/Training Program
DX: C34.91 Malignant neoplasm of unspecified part of right bronchus or lung (principal)
CPT/HCPCS: 71046

== ENCOUNTER → 2021-01-23 10:27 | Outpatient (CLI) | payer OTHER, SELFPAY ==
[2020-06-13 10:11] VITALS: BMI 21.9
--- NOTE | 2021-01-26 07:34 | PFT ---
INTRODUCTION: The patient is a 70-year-old male that presents for pulmonary function studies secondary to a diagnosis of tobacco dependency. Respiratory therapy reported good patient effort. Bronchodilators were used during testing. INTERPRETATION: Forced expiration spirometry demonstrates the presence of a moderate large airways obstructive ventilatory defect. There was no significant response to aerosolized bronchodilators, based upon strict ATS criteria. Spirograms are of good quality but do not plateau indicating slow emptying of the lungs. Body plethysmography was performed and revealed an elevated RV to 150% of predicted, indicative of underlying air trapping. Diffusing capacity by single breath CO is preserved at 93% of predicted. IMPRESSION: Irreversible moderate large airways obstructive ventilatory defect with associated air trapping and preserved diffusing capacity.
== END ==
PROVIDERS: Referring Provider Internal Medicine Critical Care Medicine; Visit Provider Internal Medicine Critical Care Medicine
DX: F17.211 Nicotine dependence, cigarettes, in remission (principal)
CPT/HCPCS: 94060; 94726; 94729

== ENCOUNTER → 2021-01-26 12:18 | Outpatient (CLI) | payer OTHER, SELFPAY ==
[2020-06-13 10:11] VITALS: BMI 21.9
[2021-01-26 12:37] VITALS: PULSE 104; PULSE 106; PULSE 110; PULSE 111; PULSE 112; PULSE 91; PULSE 95; O2SAT 93; O2SAT 94; O2SAT 95; O2SAT 96
--- NOTE | 2021-01-27 07:31 | PCM.PSN.6M ---
PSN 6 Minute Walk Test 6 Minute Walk Test 6 Minute Walk Test: 6 Minute Walk Test PSN:6-Minute Walk Test Start: 01/26/21 12:37 Freq: Status: Active Protocol: [id number] Document 01/26/21 12:37 CINDY (Rec: 01/26/21 12:40 ESTERON [id number]) 6 Minute Walk Test Date Performed 01/26/21 Time Performed 12:25 Height 6 ft Weight: 79.379 kg Weight in Pounds 175.[address]: Edu Camara Assistive device used: None Pre-test Oxygen Delivery Method Room Air Pulse Ox (%) 94 Pulse Rate (60-100 beats/min) 95 Dyspnea Jose Manuel Scale (0-10) 0.5 Exertion Jose Manuel Scale (6-20) 6 1st minute Oxygen Delivery Method Room Air Pulse Ox (%) 96 Pulse Rate (60-100 beats/min) 104 H 2nd minute Oxygen Delivery Method Room Air Pulse Ox (%) 94 Pulse Rate (60-100 beats/min) 106 H 3rd minute Oxygen Delivery Method Room Air Pulse Ox (%) 93 Pulse Rate (60-100 beats/min) 110 H 4th minute Oxygen Delivery Method Room Air Pulse Ox (%) 95 Pulse Rate (60-100 beats/min) 112 H 5th minute Oxygen Delivery Method Room Air Pulse Ox (%) 94 Pulse Rate (60-100 beats/min) 111 H 6th minute Oxygen Delivery Method Room Air Pulse Ox (%) 93 Pulse Rate (60-100 beats/min) 112 H Dyspnea Jose Manuel Scale (0-10) 2 Exertion Jose Manuel Scale (6-20) 12 Post-test Oxygen Delivery Method Room Air Pulse Ox (%) 95 Pulse Rate (60-100 beats/min) 91 Full Laps Walked 17 Partial Lap, Number of Tiles Walked 36 Total Distance Walked (ft) 1039 Interpretation Interpretation: The patient ambulated 1039 feet over the course of 6 minutes beginning on room air without assistive devices. Pretesting oxygen saturation was noted to be 94% on room air. With ambulation, the oscar oxygen saturation was 93%. There was no significant exertional oxygen desaturation. Recommendations Recommendations: There is no indication for the use of supplemental oxygen at this time.
== END ==
PROVIDERS: Referring Provider Internal Medicine Critical Care Medicine; Visit Provider Internal Medicine Critical Care Medicine
DX: F17.211 Nicotine dependence, cigarettes, in remission (principal)
CPT/HCPCS: 94618

== ENCOUNTER 2021-06-22 16:02 | Outpatient (CLI) | payer OTHER, SELFPAY ==
[2020-06-13 10:11] VITALS: BMI 21.9
--- NOTE | 2021-06-22 16:05 | CT_ITS ---
STUDY: CT Chest W/O Contrast Injection 06/22/2021 5:32 PM REASON FOR EXAM: Male, 70 years old. rigth shoulder pain; h/o NSCLC Individualized dose optimization techniques were used for this CT. TECHNIQUE: Transaxial imaging was performed withoutIV contrast material. COMPARISON: 01.30.21 PT Body FINDINGS: There are degenerative changes of the shoulders. There is no pneumothorax. There is no demonstrated pleural abnormality. There is a left Port-A-Cath and/or mediport in place. The tip is in the superior vena cava. Stable right apical fibrosis. New Minimal infiltrates in the right lower lobe suggesting pneumonia. There are calcifications of the coronary arteries. Normal mediastinum. Normal hilar regions. Normal pulmonary arteries. There is atherosclerotic calcification of the aortic arch with tortuosity and elongation of the aortic arch and descending thoracic aorta. There are multi-level degenerative changes of the thoracic spine. There are no acute findings of the upper abdomen. CT/Chest without Contrast IMPRESSION: New Minimal infiltrates in the right lower lobe suggesting pneumonia. Electronically Signed: Ramin Albarran MD at 17:35 EDT ,
== END 2021-06-22 23:59 | disposition home or self-care (01) ==
LOC: CT 16:03
PROVIDERS: Referring Provider Nurse Practitioner Family; Visit Provider Nurse Practitioner Family
DX: M25.511 Pain in right shoulder (principal); C34.91 Malignant neoplasm of unspecified part of right bronchus or lung
CPT/HCPCS: 71250

== ENCOUNTER 2021-06-26 10:49 | Outpatient (CLI) | payer OTHER, SELFPAY ==
[2020-06-13 10:11] VITALS: BMI 21.9
== END 2021-06-26 23:59 | disposition home or self-care (01) ==
PROVIDERS: Referring Provider Nurse Practitioner Family; Visit Provider Nurse Practitioner Family
DX: Z20.828 Contact with and (suspected) exposure to other viral communicable diseases (principal)
CPT/HCPCS: 87635; U0003; U0005

== ENCOUNTER 2021-06-27 16:02 | Outpatient (CLI) | payer OTHER, SELFPAY ==
[2020-06-13 10:11] VITALS: BMI 21.9
--- NOTE | 2021-06-27 16:50 | MRI_ITS ---
STUDY: MRI BRAIN WITH AND WITHOUT CONTRAST ENHANCEMENT 1701 HOURS ON 06/27/2021 REASON FOR EXAM: 70-year-old male with headaches. TECHNIQUE: Standardized multiplanar fat and water weighted pulse sequences were obtained. IV 15mL dotraem was administered for the contrast portion of the examination. COMPARISON: None. FINDINGS: Mild central and cortical atrophy, normal for age. Normal white matter tracts of the supratentorial brain. Normal transverse and sagittal venous sinuses. Normal bilateral basal ganglia. Normal thalami. There is no extra-axial fluid accumulation. Normal flow voids within the major intracranial circulation suggesting patency by spin echo criteria. Normal venous enhancement. There is no enhancing intra-axial or extra-axial abnormality. Normal sella turcica, pituitary gland, infundibular stalk, optic chiasm and hypothalamus. Normal tectal plate and pineal gland. Normal midbrain, lupillo and medulla. Normal cerebellum. Normal basal cisterns. Normal bilateral temporal bones. Normal bilateral internal auditory canals. No demonstrated orbital abnormality, within the constraints of a routine brain study. Normal visualized paranasal sinuses. Normal calvarium and skull base. Normal visualized soft tissue structures. Normal visualized upper cervical spine. No findings of ischemic or hemorrhagic cerebral infarct. There is no evidence of intracranial neoplasms. There are no aneurysms or vascular malformations. There are no focal sites of demyelination. There is no evidence of a subdural, epidural, or intracerebral hematoma, hemorrhage, or contusion. MRI/Brain W/WO Contrast IMPRESSION: 1. Normal examination for age. 2. No intracranial neoplasms. No subdural, epidural, or intracerebral hematoma, hemorrhage or contusion. 3. No ischemic or hemorrhagic cerebral infarct. 4. No focal sites of demyelination. 5. Normal sella and pituitary. 6. Normal globes, orbits and optic nerves. Electronically Signed: Andrew Galvez MD at 3:04 EDT ,
--- NOTE | 2021-06-27 17:25 | MRI_ITS ---
STUDY: MRI CERVICAL SPINE WITH AND WITHOUT CONTRAST REASON FOR EXAM: Male, 70 years old. Right sided neck pain; h/o NSCLC TECHNIQUE: Standardized fat and water weighted pulse sequences were obtained in the sagittal and axial following administration of IV 15ML DOTAREM. COMPARISON: Whole body PET/CT fusion scan 01/30/2021. FINDINGS: Normal foramen magnum and brainstem-cervical cord junction. Normal craniovertebral junction. Normal anterior atlantoaxial articulation. Normal odontoid process. Minimal cervical kyphosis at the C4-C5 disc space level. Normal vertebral bodies and posterior osseous elements. C2-3: Normal endplates. Normal disc height, signal and morphology. Normal central canal and intervertebral neural foramina. C3-4: Normal endplates. Normal disc height, signal and morphology. Normal central canal and intervertebral neural foramina. C4-5: Minimal MODIC type II degenerative vertebral marrow fatty changes underneath the vertebral endplates. Moderate disc space height narrowing. Capacious central canal. Normal intervertebral neural foramina. C5-6: MODIC type II degenerative vertebral marrow fatty changes underneath the vertebral endplates. Minimal disc space height narrowing. Capacious central canal. Normal intervertebral neural foramina. C6-7: MODIC type II degenerative vertebral marrow fatty changes underneath the vertebral endplates. Pronounced disc space height narrowing. Capacious central canal. Normal intervertebral neural foramina. C7-T1: Normal endplates. Normal disc height and morphology. Capacious central canal. Normal intervertebral neural foramina. T1-T2: (Sagittal only). Normal endplates. Normal disc height. Minimal ventral extra dural defect due to small posterior bulging annulus. Capacious central canal. Normal intervertebral neural foramina. T2-T3, T3-T4 and T4-T5: (Sagittal only). Normal endplates. Normal disc height and morphology. Capacious central canal. Normal intervertebral neural foramina. Normal cervical cord. Normal upper thoracic spinal cord. Following IV contrast administration, there are no abnormal enhancing lesions intradurally and extradurally. Prominent right lung apex presumably secondary to neoplasm. MRI/Spine Cervical W/WO Contrast IMPRESSION: 1. No MRI evidence of enhancing metastatic disease in the cervical spine, intradurally and extradurally. 2. No MRI evidence of cervical spinal stenosis or cervical extruded disc fragment. 3. Normal cervical spinal cord. 4. Prominent right lung apex. Please see CT chest report of 06/22/2021. Electronically Signed: Jose R Trejo MD at 10:09 EDT ,
== END 2021-06-27 23:59 | disposition home or self-care (01) ==
LOC: MRI 16:03
PROVIDERS: Visit Provider Nurse Practitioner Family
DX: C34.91 Malignant neoplasm of unspecified part of right bronchus or lung (principal); R51.9 Headache, unspecified
CPT/HCPCS: 70553; 72156; A9581; A4216

== ENCOUNTER → 2021-12-31 | Outpatient (CLI) | payer OTHER, SELFPAY ==
[2020-06-13 10:11] VITALS: BMI 21.9
--- NOTE | 2021-12-31 13:46 | CT_ITS ---
STUDY: CT CHEST WITHOUT CONTRAST REASON FOR EXAM: Male, 71 years old. MONITOR LUNG CANCER RADIATION DOSAGE (If Supplied By Facility): CTDIvol = ( 6.6 ) mGy, DLP = ( 249.44 ) mGycm TECHNIQUE: Transaxial imaging was performed without the administration of intravenous contrast material. Multiplanar coronal and sagittal images were reformatted. Individualized dose optimization techniques were used for this CT. COMPARISON: Comparison is made with prior study dated 06/22/2021. FINDINGS: CHEST A left-sided portacatheter is seen with the tip in the superior vena cava. Stable fibrotic changes with bronchiectasis in the right lung apex and medial aspect of the right upper lobe in keeping with history of prior radiation therapy. Persistent mild scarring in the superior segment of the right lower lobe. Minimal increased markings at the posterior medial segment of the right lower lobe suggests some scarring. The previously seen subpleural nodules in the peripheral lateral aspect of the right lung have almost completely resolved. There is no demonstrated pleural abnormality. There are calcifications of the coronary arteries. Progressive thickening along the anterior pericardium suggestive of a small pericardial effusion. Normal mediastinum. Normal hilar regions. Normal unenhanced pulmonary arteries. There is atherosclerotic calcification of the aortic arch with tortuosity and elongation of the aortic arch and descending thoracic aorta. There are mild degenerative changes of the thoracic spine. There is no demonstrated abnormality of the visualized upper abdomen. CT/Chest without Contrast IMPRESSION: Stable scarring in the right lung apex and medial aspect of the right upper lobe. Interval decreased size of the subpleural nodules in the peripheral lateral aspect of the right lower lobe. Increasing pericardial effusion. Electronically Signed: Jas Tejada MD at 15:32 EDT ,
== END | disposition home or self-care (01) ==
PROVIDERS: Referring Provider Internal Medicine Medical Oncology; Visit Provider Internal Medicine Medical Oncology
DX: C34.91 Malignant neoplasm of unspecified part of right bronchus or lung (principal)
CPT/HCPCS: 71250

== ENCOUNTER → 2022-01-08 | Outpatient (CLI) | payer OTHER, SELFPAY ==
[2020-06-13 10:11] VITALS: BMI 21.9
--- NOTE | 2022-01-08 09:10 | NM_ITS ---
CLINICAL: 71-year-old male with history of carcinoma of the lung. WHOLE BODY 99m Tc MDP RADIONUCLIDE BONE SCINTIGRAPHY COMPARISON: None available FINDINGS: Following the intravenous administration of 27.7 mCi of 99m Tc MDP, whole body bone images reveal: 1. Increased tracer concentration is defined in the acromioclavicular and sternoclavicular compartments of both shoulders, the bilateral wrists, the fifth lumbar vertebra posteriorly on the left and right, the lower cervical spine posteriorly on the right, the patellofemoral compartment of the right knee, the medial tibial compartment of the left knee. 2. There is facilitated uptake noted in the lateral cortical compartment of the visualized bilateral proximal-distal tibial diaphysis. 3. The remaining skeletal structures are scintigraphically unremarkable with normal-appearing renal images and urinary bladder activity identified. NM/Bone Scan Whole Body IMPRESSION: 1. The increase in tracer concentration defined in the right left shoulders, bilateral wrists, the cervical and lumbar spine, the bilateral knees is most consistent with degenerative arthrosis. 2. Enhanced uptake defined in the lateral cortical compartment of the proximal-distal visualized tibial diaphyses is likely special service representative of periostitis. Electronically Signed: Tee Morrison, at 20:26 EDT ,
[2022-01-08] MEDS: 0.9% Saline Lock 10 ML Syringe IV (09:30)
== END | disposition home or self-care (01) ==
LOC: NM 09:09
PROVIDERS: Referring Provider Internal Medicine Medical Oncology; Visit Provider Internal Medicine Medical Oncology
DX: C34.91 Malignant neoplasm of unspecified part of right bronchus or lung (principal); C77.1 Secondary and unspecified malignant neoplasm of intrathoracic lymph nodes; M54.9 Dorsalgia, unspecified
CPT/HCPCS: 78306; A9503; A4216

== ENCOUNTER → 2022-01-10 | Outpatient (CLI) | payer OTHER, SELFPAY ==
[2020-06-13 10:11] VITALS: BMI 21.9
--- NOTE | 2022-01-10 10:46 | ECHODONC_ITS ---
Version 2 Reason For Study: OTHER Left Ventricle Normal LV size. Left ventricular systolic function is normal. The estimated ejection fraction is 55 %. Stage 1 diastolic dysfunction. No regional wall motion abnormalities noted. Right Ventricle Normal RV size. Normal systolic function. Atria Normal left atrium. Normal right atrium. Mitral Valve Normal mitral valve. Tricuspid Valve Normal tricuspid valve. Mild (1+) tricuspid valve insufficiency. Pulmonary artery systolic pressure is 33 mmHg. Aortic Valve Exclude bicuspid aortic valve. Pulmonic Valve Normal pulmonic valve. Great Vessels Mildly dilated aortic root. Pericardium/Pleural No pericardial effusion. MMode/2D Measurements & Calculations RVDd: 3.2 cm Ao root diam: 4.4 cm LAV(MOD-bp): 79.6 ml LAV(MOD-bp) Indexed: 39.5 ml/m2 LAV(MOD-sp2): 92.0 ml LAV(MOD-sp4): 44.8 ml LVAd ap4: 34.6 cm2 LVAd ap2: 32.2 cm2 SV(MOD-sp4): 58.0 ml LVLd ap4: 8.1 cm LVLd ap2: 8.0 cm EDV(MOD-sp4): 120.3 ml EDV(MOD-sp2): 110.3 ml EDV(sp4-el): 124.8 ml EDV(sp2-el): 109.5 ml LVAs ap4: 22.9 cm2 LVAs ap2: 23.7 cm2 LVLs ap4: 6.8 cm LVLs ap2: 7.1 cm ESV(MOD-sp4): 62.3 ml ESV(MOD-sp2): 65.9 ml ESV(sp4-el): 65.2 ml ESV(sp2-el): 66.8 ml EF(MOD-sp4): 48.2 % EF(MOD-sp2): 40.2 % EF(sp4-el): 47.8 % SV(MOD-sp2): 44.4 ml SV(sp4-el): 59.6 ml LA A4 area: 15.2 cm2 RA A4 area: 16.8 cm2 Time Measurements MV dec time: 0.22 sec Doppler Measurements & Calculations MV E max neo: 61.5 cm/sec Lat Peak E' Neo: 8.6 cm/sec Med Peak E' Neo: 6.3 cm/sec MV A max neo: 88.0 cm/sec E/E' lat: 7.1 E/E' med: 9.7 MV E/A: 0.70 MV V2 max: 92.4 cm/sec MV dec slope: 315.8 cm/sec2 Ao V2 max: 97.2 cm/sec MV max P.4 mmHg Ao max P.9 mmHg MV V2 mean: 55.8 cm/sec Ao V2 mean: 67.7 cm/sec MV mean P.4 mmHg Ao mean P.2 mmHg MV V2 VTI: 30.0 cm Ao V2 VTI: 23.1 cm LV V1 max: 83.9 cm/sec MR max neo: 653.2 cm/sec TR max neo: 276.0 cm/sec LV V1 max P.8 mmHg MR max P.7 mmHg TR max P.5 mmHg LV V1 mean P.5 mmHg LV V1 mean: 56.6 cm/sec LV V1 VTI: 21.7 cm ECHO/ONC Echo Complete Interpretation Summary Normal LV size. Left ventricular systolic function is normal. The estimated ejection fraction is 55 %. Stage 1 diastolic dysfunction. The global longitudinal strain is moderately abnormal. The global longitudinal strain = -13.6% (abnormal). Ordering Physician: Loyd Russell Referring Physician: Loyd Russell Performed By: Suyapa Gastelum RCS
== END | disposition home or self-care (01) ==
LOC: CVS 10:45
PROVIDERS: Referring Provider Internal Medicine Medical Oncology; Visit Provider Internal Medicine Medical Oncology
DX: C34.91 Malignant neoplasm of unspecified part of right bronchus or lung (principal); C77.1 Secondary and unspecified malignant neoplasm of intrathoracic lymph nodes; I31.39 Other pericardial effusion (noninflammatory)
CPT/HCPCS: 93306; 93356

== ENCOUNTER → 2022-07-31 | Outpatient (CLI) | payer OTHER, SELFPAY ==
[2020-06-13 10:11] VITALS: BMI 21.9
--- NOTE | 2022-07-31 08:05 | CT_ITS ---
STUDY: CT CHEST WITHOUT CONTRAST REASON FOR EXAM: Male, 71 years old. MONITOR LUNG CA. Status post chemotherapy and radiation therapy. RADIATION DOSAGE (If Supplied By Facility): CTDIvol = ( 10.03 ) mGy, DLP = ( 391.15 ) mGycm TECHNIQUE: Transaxial imaging was performed without the administration of intravenous contrast material. Multiplanar coronal and sagittal images were reformatted. Individualized dose optimization techniques were used for this CT. COMPARISON: Comparison is made with prior study dated December 31, 2021. FINDINGS: CHEST A left-sided hillary catheter is seen with the tip in the superior vena cava. Stable scarring with bronchiectasis in the right lung apex extending medially into the right suprahilar region. This is in keeping with the patient''s history of radiation therapy. Stable mild degree of increased markings with bronchiectasis is also seen in the posteromedial aspect of the right upper lobe. Stable mild scarring in the posteromedial segment of the right lower lobe. There is no demonstrated pleural abnormality. There are calcifications of the coronary arteries. Slight increase in the pericardial effusion. There are multiple small lymph nodes within the mediastinum, which are normal in size and morphology most compatible with reactive lymph hyperplasia. Normal hilar regions. Normal unenhanced pulmonary arteries. There is atherosclerotic calcification of the aortic arch with tortuosity and elongation of the aortic arch and descending thoracic aorta. There are mild degenerative changes of the thoracic spine. There is no demonstrated abnormality of the visualized upper abdomen. CT/Chest without Contrast IMPRESSION: Stable examination. No acute abnormality is seen. Electronically Signed: Jas Tejada MD at 14:29 EDT ,
== END | disposition home or self-care (01) ==
LOC: CT 08:04
PROVIDERS: Referring Provider Internal Medicine Medical Oncology; Visit Provider Internal Medicine Medical Oncology
DX: C34.91 Malignant neoplasm of unspecified part of right bronchus or lung (principal)
CPT/HCPCS: 71250

== ENCOUNTER → 2023-03-03 | Outpatient (CLI) | payer OTHER, SELFPAY ==
[2020-06-13 10:11] VITALS: BMI 21.9
--- NOTE | 2023-03-03 12:49 | CT_ITS ---
STUDY: CT CHEST AND ABDOMEN WITHOUT CONTRAST REASON FOR EXAM: Male, 72 years old. MONITOR LUNG CA RADIATION DOSAGE (If Supplied By Facility): CTDIvol = ( 9.64 ) mGy, DLP = ( 706.82 ) mGycm TECHNIQUE: Transaxial imaging was performed without IV contrast. Multiplanar coronal and sagittal images were reformatted. Individualized dose optimization techniques were used for this CT. COMPARISON: Prior study dated: 07/31/2022 FINDINGS: CHEST Lungs/pleura: The central airways are patent. There is persistent consolidative appearance with air bronchograms and bronchiectasis of the right lung apex, extending inferiorly to the hilar region. This is unchanged from prior. This may represent once again post radiation change. Patchy groundglass nodular opacities are seen in the right lower lobe, increased from prior. Mild paraseptal and centrilobular emphysema. There is no demonstrated pleural abnormality. No pneumothorax. Mediastinum: Normal heart size. Small pericardial effusion. This is similar to prior. Coronary artery calcifications are present. Prominent mediastinal lymph nodes are without change from previous. Unchanged right hilar prominence. Normal unenhanced pulmonary arteries. Normal aorta arch and descending thoracic aorta. Chest wall: No axillary lymphadenopathy or chest wall mass. Left chest wall port in place. ABDOMEN Liver/gallbladder/biliary tree: The liver is normal in size, shape, and attenuation. There is no mass or intrahepatic biliary ductal dilatation. Normal gallbladder and extrahepatic biliary system. Pancreas: Normal pancreas. Spleen: Normal in size. No splenic lesion. Adrenal glands: Normal bilateral adrenal glands. Kidneys: The right kidney is normal in size, shape, and position. No hydronephrosis or nephrolithiasis. The left kidney is normal in size, shape, and position. No hydronephrosis or nephrolithiasis. GI tract: Normal visualized stomach. Normal small intestine. No colonic wall thickening or inflammation. Colonic diverticulosis which is greatest at the sigmoid colon. No diverticulitis. Appendix not seen. Lymphovascular: Normal abdominal aorta. Moderate atherosclerotic calcification. Normal inferior vena cava. Normal retroperitoneum. No retroperitoneal or mesenteric lymphadenopathy. Abdominal wall: Normal abdominal wall. Bladder: Partially visualized bladder with no abnormalities. OSSEOUS STRUCTURES No acute osseous abnormality. Degenerative changes at L4-L5 with disc space narrowing and sclerosis. CT/CT Chest AND Abd W/O Contrast IMPRESSION: Similar appearance of the area of scarring/fibrosis at the right lung apex associated with postradiation change. Increased groundglass nodular opacities of the right lung which may be infectious or inflammatory. No suspicious findings of the abdomen to suggest metastatic disease. Electronically Signed: Jovanni Burks MD at 6:21 EST ,
== END | disposition home or self-care (01) ==
PROVIDERS: Referring Provider Internal Medicine Medical Oncology; Visit Provider Internal Medicine Medical Oncology
DX: C34.11 Malignant neoplasm of upper lobe, right bronchus or lung (principal)
CPT/HCPCS: 71250; 74150

== ENCOUNTER 2023-07-08 05:19 | Day surgery (SDC) | payer OTHER, SELFPAY ==
[2020-06-13 10:11] VITALS: BMI 21.9
[2023-07-08 05:57] VITALS: BP 153/78; PULSE 85; RESP 18; TEMP 36.7; O2SAT 95; BMI 22.2
[2023-07-08] MEDS: Lactated Ringers 1,000 ML 15 ML IV (06:15)
--- NOTE | 2023-07-08 06:18 | PCM.HP.BLA ---
History and Physical Date of Admission: 07/08/23 Visit Reasons: COLONOSCOPY SCREENING Chief Complaint: c-scope [employer] Required: No Is patient in pain?: No Allergies Iodinated Contrast Media [CONTRASTS] Allergy (Verified 06/13/23 15:23) Anaphylaxis Medications salsalate 750 mg tablet 750 mg PO BID arthritis 06/14/20 [History Confirmed 06/13/23] tamsulosin 0.4 mg capsule 0.4 mg PO QHS BPh 06/14/20 [History Confirmed 06/13/23] losartan 100 mg tablet 50 mg PO DAILY 12/13/20 [History Confirmed 06/13/23] albuterol sulfate 90 mcg/actuation aerosol inhaler 2 puff inhalation Q4H PRN shortness of breath or wheezing #8.5 grams 01/03/21 [Rx Confirmed 06/13/23] budesonide-formoterol HFA 160 mcg-4.5 mcg/actuation aerosol inhaler (Symbicort) 2 puff inhalation BID #1 ea 02/12/21 [Rx Confirmed 06/13/23] tiotropium bromide 2.5 mcg/actuation mist for inhalation (Spiriva Respimat) 2 puff inhalation QDAY #1 ea 02/12/21 [Rx Confirmed 06/13/23] PFSH Medical History (Updated 06/13/23 @ 15:[address] William Carver MD) Headache Hypertension Lung cancer Pneumonia Rash REMOVAL OF BENIGN MOLES ON BACK Right hip pain Right shoulder pain Teeth grinding Surgical History (Updated 06/13/23 @ 15:22 by Emily Iqbal) History of appendectomy (~2005) Port-A-Cath in place Previous back surgery (~2003) S/P carpal tunnel release Status post Mohs surgery (~2012) Family History Brother Lung cancerFather Black lung Social History Smoking Status: Former smoker HPI HPI HPI: 72-year-old gentleman. He is referred by the [place] [facility] for surgical consultation regarding a colonoscopy as the patient's had a previous history of colon polyps x 2 resected 6 years prior with a colonoscopy that was performed in [place] at that time. A written copy my surgical consult recommendations will return to the [place]. Fortunately the patient really has no particular symptoms. No abdominal pain no unexpected weight loss he denies any gross bright red blood per rectum or melena. His most pertinent history is that he is 3 years ago treated for lung cancer with radiation and chemotherapy. He sees Dr. Loyd Russell with [facility] services for that. Claims that he has had no recurrence. As a consequence however he has a chronic cough and some hard breathing and dyspnea on exertion. He does not require oxygen therapy. He has had left chest port in place. He states that he will ask Dr Russell at his next appointment in September as to whether that can be removed. ROS General General: No weight change, appetite, fatigue, colon cancer, breast cancer or weakness HEENT HEENT: No difficulty swallowing, eye injury, eye surgery, swollen glands or hoarseness Endo Endocrine: No thyroid disease, diabetes mellitus, thyroid cancer, Hair loss, heat intolerance or cold intolerance Skin Skin: Yes rash; No changing moles Breast Breast: No left breast lump, right breast lump, nipple discharge, breast pain, abnormal mammogram, abnormal US or breast enlargement Musc Musculoskeletal: Yes arthritis and rheumatoid arthritis; No back problems, gout or joint pain Cardio Cardiovascular: Yes high blood pressure; No murmur, pacemaker, heart disease, atrial fibrillation, heart attack, heart stent, palpitations, shortness of breat with exertion or chest pain Psych Psychiatric: No depression, anxiety or hearing voices Resp Respiratory: Yes shortness of breath, No sleep apnea, Yes cough, Yes COPD, Yes asthma, Yes emphysema and No wheezing Gastro Gastrointestinal: No abdominal pain, No nausea or vomiting, No diarrhea, No constipation, No blood in stool, No acid reflux, Yes hemorrhoids, No ulcers, No gallbladder problem and No black,tarry stools Juan Jose Hematologic: No blood thinners, No blood disorders, No bleeding, No anemia and No blood clots Neuro Neurologic: No system reviewed and no additional complaints, except as documented, No as per HPI, No abnormal gait, No abnormal hearing, No abnormal movements, No abnormal speech, No behavioral changes, No burning sensations, No confusion, No convulsions, No disequilibrium, No dizziness, No localized weakness, No frequent falls, No headache(s), No lack of coordination, No loss of vision, No memory loss, Yes numbness, No other visual disturbances, No radicular pain, No restless legs, No sensory deficit, No syncope, Yes tingling, No tremor(s), No weakness and No other Exam Const General: cooperative, healthy appearing and comfortable [facility] Head: normal to inspection Eyes General: appearance normal, both eyes and all related structures Neck Neck: normal visual inspection Chest Other: Increased anterior posterior diameter Resp Other: Respirations are clear, diminished respiratory expansion. Cardio Rate: regular rate Rhythm: regular rhythm GI Inspection: normal to inspection Palpation: soft and no hepatosplenomegaly Skin General: no rashes or lesions noted Neuro General: patient alert, patient awake and patient oriented x3 Extrem General: no calf tenderness Assessment and Plan Assessment and Plan (1) Personal history of colonic polyps: Status: Acute Plan: I recommended the patient a colonoscopy with possible biopsy or polypectomy as indicated. He is aware of the technique, benefit, risk, alternatives. He has had an opportunity ask and have questions answered. Because of his pulmonary diminishment we will definitely have monitored anesthesia care. He has had an opportunity to ask and have questions answered. I very much appreciate the kind opportunity of continue to assist with his surgical care. Copy: Dr. Loyd Russell in the [facility] system William Carver M.D., F.A.C.S I have examined the patient and the H&P has been reviewed. There are no clinical changes since date of exam. William Carver M.D., F.A.C.S.
[2023-07-08] MEDS: 0.9 % NaCl (Sterile) Posiflush 10 mL IV (06:22)
--- NOTE | 2023-07-08 06:30 | COLBX_PTH ---
PATIENT: PALOMA DUMONT LOC: EN U#:[id number] AGE/SX: 72/M ROOM: RE07/08/[address]: Dr. William Carver MD : 1950 BED: DIS: 07/08/2023 SPEC #: [id number] RECD: 07/08/23 10:02 STATUS: ANTONIO RAHUL #: [id number] SONYA: 07/08/23 06:[address]: William Carver DEPT: SURGICAL PATHOLOGY RECD BY: Marilin Fierro ENTERED: 07/08/23 11:15 SP TYPE: COLON BX BLAKE DR: [facility] Tissues: A - COLON BIOPSY B - Descending colon Procedures: Surgery Specimen Level IV HEADER OPERATION: Colonoscopy, polypectomy PRE-OP DIAGNOSIS: Personal history of colonic polyps TISSUE SUBMITTED: A- Splenic flexure polyp, B- Descending colon polyp biopsy MICROSCOPIC DIAGNOSIS A. Colonic polyp at splenic flexure, biopsy: Tubular adenoma. B. Descending colon polyp, biopsy: Fragments of tubular adenoma. / 07/09/23 MICROSCOPIC DESCRIPTION Slides are reviewed. GROSS DESCRIPTION A. Received in fixative is one container labeled with the patient's name and designated Splenic flexure polyp. The specimen consists of one irregular fragment of light evans soft tissue that measures 0.4 x 0.2 x .1 cm. The specimen is totally submitted in one cassette. B. Received in fixative is one container labeled with the patient's name and designated Descending colon polyp biopsy. The specimen consists of multiple irregular fragments of light evans soft tissue that in aggregate measure 0.8 x 0.5 x 0.1 cm. The specimen is totally submitted in one cassette. / 07/08/23 TC:5 CPT:33899h0
[2023-07-08 06:58] VITALS: BP 153/78; BP 93/56; PULSE 78; RESP 16; TEMP 36.5; O2SAT 95
--- NOTE | 2023-07-08 06:59 | OP.COLON_ITS ---
Patient Name: Seth Driscoll Procedure Date: 07/08/2023 6:19 AM Date of : 1950 Age: 72 Procedure: Colonoscopy Indications: High risk colon cancer surveillance: Personal history of colonic polyps Providers: William Carver MD Referring MD: [facility] Medicines: See the Anesthesia note for documentation of the administered medications Patient Profile: Last Colonoscopy: 5 years ago. Complications: No immediate complications. Procedure: Pre-Anesthesia Assessment: - Prior to the procedure, a History and Physical was performed, and patient medications and allergies were reviewed. The patient's tolerance of previous anesthesia was also reviewed. The risks and benefits of the procedure and the sedation options and risks were discussed with the patient. All questions were answered, and informed consent was obtained. Prior Anticoagulants: The patient has taken no anticoagulant or antiplatelet agents. ASA Grade Assessment: III - A patient with severe systemic disease. After reviewing the risks and benefits, the patient was deemed in satisfactory condition to undergo the procedure. After I obtained informed consent, the scope was passed under direct vision. Throughout the procedure, the patient's blood pressure, pulse, and oxygen saturations were monitored continuously. The Colonoscope was introduced through the anus and advanced to the cecum, identified by appendiceal orifice and ileocecal valve. The colonoscopy was performed with moderate difficulty due to multiple diverticula in the colon. The patient tolerated the procedure well. The quality of the bowel preparation was good. The ileocecal valve and the appendiceal orifice were photographed. Scope In: 6:31:39 AM Scope Withdrawal Time 0 hours 14 minutes 28 seconds Scope Out: 6:52:23 AM Total Procedure Duration Time 0 hours 20 minutes 44 seconds Findings: The digital rectal exam findings include non-thrombosed external hemorrhoids, non-thrombosed internal hemorrhoids and internal hemorrhoids that prolapse with straining, but spontaneously regress to the resting position (Grade II). Pertinent negatives include normal prostate (size, shape, and consistency). A 9 mm polyp was found in the splenic flexure. The polyp was sessile. The polyp was removed with a cold snare. Resection and retrieval were complete. A 6 mm polyp was found in the mid descending colon. The polyp was sessile. The polyp was removed with a cold biopsy forceps. Resection and retrieval were complete. Multiple diverticula were found in the sigmoid colon and descending colon. Impression: - Non-thrombosed external hemorrhoids, non-thrombosed internal hemorrhoids and internal hemorrhoids that prolapse with straining, but spontaneously regress to the resting position (Grade II) found on digital rectal exam. - One 9 mm polyp at the splenic flexure, removed with a cold snare. Resected and retrieved. - One 6 mm polyp in the mid descending colon, removed with a cold biopsy forceps. Resected and retrieved. - Diverticulosis in the sigmoid colon and in the descending colon. Recommendation: - Discharge patient to home. - Resume previous diet. - Continue present medications. - Repeat colonoscopy in 5 years for surveillance based on pathology results. - Telephone my office for pathology results in 1 week. Procedure Code(s): --- Professional --- 75226, Colonoscopy, flexible; with removal of tumor(s), polyp(s), or other lesion(s) by snare technique 73647, 59, Colonoscopy, flexible; with biopsy, single or multiple Diagnosis Code(s): --- Professional --- Z86.010, Personal history of colonic polyps K64.1, Second degree hemorrhoids K64.4, Residual hemorrhoidal skin tags D12.3, Benign neoplasm of transverse colon (hepatic flexure or splenic flexure) D12.4, Benign neoplasm of descending colon K57.30, Diverticulosis of large intestine without perforation or abscess without bleeding CPT copyright 2021 [employer]. All rights reserved. The codes documented in this report are preliminary and upon consumer product advisor review may be revised to meet current compliance requirements. William Carver MD 07/08/2023 6:58:32 AM This report has been signed electronically. Number of Addenda: 0 Note Initiated On: 07/08/2023 6:19 AM
--- NOTE | 2023-07-08 06:59 | OP.CCLET_ITS ---
07/08/2023 Loyd Russell MD [address] [place] [address] Re : Colonoscopy procedure for Seth Driscoll Dear Dr. Russell This procedure was performed on Saturday, July 08, 2023. My impressions and recommendations are as follows: Impressions : - Non-thrombosed external hemorrhoids, non-thrombosed internal hemorrhoids and internal hemorrhoids that prolapse with straining, but spontaneously regress to the resting position (Grade II) found on digital rectal exam. - One 9 mm polyp at the splenic flexure, removed with a cold snare. Resected and retrieved. - One 6 mm polyp in the mid descending colon, removed with a cold biopsy forceps. Resected and retrieved. - Diverticulosis in the sigmoid colon and in the descending colon. Recommendations : - Discharge patient to home. - Resume previous diet. - Continue present medications. - Repeat colonoscopy in 5 years for surveillance based on pathology results. - Telephone my office for pathology results in 1 week. My findings are described in the full procedure note, which is enclosed. If I can be of further assistance, please feel free to contact me at Doctor phone number(s): Work: . Sincerely, William Carver MD 07/08/2023 6:58:32 AM This report has been signed electronically.
[2023-07-08 07:00] VITALS: BP 121/68; BP 153/78; PULSE 83; RESP 16; O2SAT 95
[2023-07-08 07:05] VITALS: BP 109/67; BP 153/78; PULSE 81; RESP 16; O2SAT 97
[2023-07-08 07:10] VITALS: BP 146/82; BP 153/78; PULSE 82; RESP 16; TEMP 36.5; O2SAT 98
[2023-07-08 07:18] VITALS: BP 153/78
== END 2023-07-08 07:48 | disposition home or self-care (01) ==
LOC: EN 05:20 → AC 05:21
PROVIDERS: Visit Provider Surgery
PROC: 0DJD8ZZ Inspection of Lower Intestinal Tract, Via Natural or Artificial Opening Endoscopic (ICD-10-PCS; CPT 45378; principal; 2023-07-08 06:25)
DX: Z12.11 Encounter for screening for malignant neoplasm of colon (principal); J44.9 Chronic obstructive pulmonary disease, unspecified; D12.3 Benign neoplasm of transverse colon; D12.4 Benign neoplasm of descending colon; K57.30 Diverticulosis of large intestine without perforation or abscess without bleeding; I10 Essential (primary) hypertension; K64.4 Residual hemorrhoidal skin tags; K64.1 Second degree hemorrhoids; N40.0 Benign prostatic hyperplasia without lower urinary tract symptoms; Z79.51 Long term (current) use of inhaled steroids; Z79.899 Other long term (current) drug therapy; Z87.891 Personal history of nicotine dependence; Z86.010 Personal history of colon polyps
CPT/HCPCS: 45385; 45380; 88305; J7120; A4216; J2405

== ENCOUNTER → 2023-09-02 | Outpatient (CLI) | payer OTHER, SELFPAY ==
[2020-06-13 10:11] VITALS: BMI 21.9
--- NOTE | 2023-09-02 12:44 | CT_ITS ---
EXAM: CT CHEST AND ABDOMEN WITHOUT INTRAVENOUS CONTRAST CLINICAL INDICATION: F/U NSCLC TECHNIQUE: Helically acquired images were obtained of the chest and abdomen without intravenous contrast. This CT exam was performed using one or more of the following dose reduction techniques: automated exposure control, adjustment of the mA and/or kV according to patient size, and/or use of iterative reconstruction technique. RADIATION DOSE: CTDIvol = 11.66 mGy, DLP = 788.53 mGy-cm COMPARISON: 03/03/2023 FINDINGS: CHEST: LUNGS AND PLEURAL SPACES: Apical density with cystic changes and loss of volume extending to the right hilum unchanged since the prior examination. Emphysematous changes unchanged. Pleural-based irregular opacity in the right middle lobe measuring about 1.4 x 1.8 x 0.9 cm new since previous examination could represent focal atelectasis. Tumor cannot be excluded. Scattered atelectasis or scarring. Additional irregular 1 cm nodular density abutting the right hemidiaphragm also new since previous exam. No new consolidation is seen. No evidence of pleural effusions. No mass. No pneumothorax. HEART: Coronary calcifications. Persistent small pericardial effusion unchanged. Heart size is normal. MEDIASTINUM: Unremarkable. No mediastinal or hilar adenopathy. Esophagus is unremarkable. No hiatal hernia. THYROID: Unremarkable. No thyroid lesions. ABDOMEN: LIVER: Unremarkable without contrast. Homogeneous. GALLBLADDER AND BILE DUCTS: No calcified gallstones. No intra- or extrahepatic biliary ductal dilation. PANCREAS: No focal cystic mass. SPLEEN: Normal size without focal cystic or solid mass. ADRENALS: No nodules. KIDNEYS AND URETERS: Normal renal size and position. No hydronephrosis. STOMACH AND BOWEL: See below. APPENDIX: Surgical clips the right lower quadrant likely from previous appendectomy. Diverticulosis of the visualized sigmoid colon without evidence of acute diverticulitis. INTRAPERITONEAL SPACE: No ascites or other fluid collection. No free air. CHEST and ABDOMEN: BONES/JOINTS: No suspicious lytic or blastic abnormality. SOFT TISSUES: No discrete abdominal wall hernia. VASCULATURE: Atherosclerotic excretions of the abdominal aorta without evidence of aneurysm. LYMPH NODES: No enlarged lymph nodes. CT/CT Chest AND Abd W/O Contrast IMPRESSION: 1. Right apical scarring with loss of volume likely due to postradiation changes unchanged. 2. Irregular opacities in the right middle and lower lobes as described above new since previous examination could reflect focal atelectasis. Pulmonary nodules or tumor however cannot be excluded. Correlation with PET scan is recommended. 3. No focal acute inflammatory process in the abdomen. Electronically Signed: David Fregoso MD at 13:25 EDT ,
== END | disposition home or self-care (01) ==
LOC: CT 12:44
PROVIDERS: Referring Provider Internal Medicine Medical Oncology; Visit Provider Internal Medicine Medical Oncology
DX: C34.91 Malignant neoplasm of unspecified part of right bronchus or lung (principal)
CPT/HCPCS: 71250; 74150

== ENCOUNTER → 2024-01-06 | Outpatient (CLI) | payer OTHER, SELFPAY ==
[2020-06-13 10:11] VITALS: BMI 21.9
--- NOTE | 2024-01-06 13:06 | CT_ITS ---
EXAM: CT CHEST WITHOUT INTRAVENOUS CONTRAST CLINICAL INDICATION: HX OF LUNG CA/NEW NODULES SEEN ON LAST CT TECHNIQUE: Helically acquired images were obtained of the chest without intravenous contrast. This CT exam was performed using one or more of the following dose reduction techniques: automated exposure control, adjustment of the mA and/or kV according to patient size, and/or use of iterative reconstruction technique. RADIATION DOSE: CTDIvol = 12.57 mGy, DLP = 559.27 mGy-cm COMPARISON: CT chest and abdomen without contrast 09/02/2023. FINDINGS: LUNGS AND PLEURAL SPACES: Chronic atelectasis with air bronchograms and traction bronchiectasis in the anterior apical segment of the right upper lobe is unchanged. Irregular chronic thickening in the posterior aspect of the right major fissure extending into chronic pleural thickening overlying the medial surface of the right upper lobe. Reexpansion of previously described pleural-based opacity due to focal atelectasis rather than pulmonary nodule. There is a new linear atelectases in the sagittal view rather than 8mm perifissural nodule in the minor fissure of coronal series 602, image 120. This corresponds to series 4, images 81-91. New subpleural nodule with spiculated margins in the right central lung base overlying the right mid hemidiaphragm measuring 1.6 cm versus partial focal atelectasis (series 4, image 112; series 602, image 106; series 601, images 118-130). Increased subpleural atelectasis in the right anterior lung base. HEART: Chronic pericardial effusion is again noted. Three-vessel coronary artery calcifications are unchanged. Normal cardiac size. Heart size is normal. MEDIASTINUM: Unremarkable. No mediastinal or hilar adenopathy. Esophagus is unremarkable. No hiatal hernia. THYROID: Unremarkable. No thyroid lesions. BONES/JOINTS: Unremarkable. No suspicious lytic or blastic abnormality. VASCULATURE: Calcified plaques along the thoracic aorta. 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 This is a diameter of 4.7 cm. This is unchanged. CT/Chest without Contrast IMPRESSION: 1. Reexpansion of previous pleural-based opacity due to focal atelectasis rather than pleural-based pulmonary nodule in the right middle lobe when compared to 09/02/2023. 2. New subpleural nodule with spiculated margins in the right central lung base overlying the right mid hemidiaphragm measuring 1.6 cm versus partial focal atelectases. 3. New irregular linear atelectases in the sagittal reconstructed images 84-96. It has the appearance of an 8mm perifissural nodule in the minor fissure on coronal series 602, image 120. This corresponds to axial series 4, images 81-91. Recommend follow-up CT chest in 3 months. 4. Chronic atelectases with air bronchograms and traction bronchiectasis in the anterior apical segment of right upper lobe causing elevation of right hilum. It blends with the chronic pleural thickening in the posterior aspect of the major fissure overlying the medial surface of the right upper lobe. 5. Chronic pericardial effusion and 3 vessel coronary artery calcifications are unchanged. 6. 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 This is unchanged. This may be post aortic valvular stenosis dilatation. Correlation with 2-D echocardiogram will help clarify. Electronically Signed: Jose R Trejo MD at 8:52 EDT ,
== END | disposition home or self-care (01) ==
LOC: CT 13:05
PROVIDERS: Referring Provider Internal Medicine Medical Oncology; Visit Provider Internal Medicine Medical Oncology
DX: C34.91 Malignant neoplasm of unspecified part of right bronchus or lung (principal)
CPT/HCPCS: 71250

== ENCOUNTER → 2024-04-12 | Outpatient (CLI) | payer OTHER, SELFPAY ==
[2020-06-13 10:11] VITALS: BMI 21.9
--- NOTE | 2024-04-12 07:59 | CT_ITS ---
STUDY: CT CHEST T ABDOMEN WITHOUT CONTRAST REASON FOR EXAM: Male, 73 years old. Known lung carcinoma RADIATION DOSAGE (If Supplied By Facility): CTDIvol = ( 12.16 ) mGy, DLP = ( 900.59 ) mGycm TECHNIQUE: Transaxial imaging was performed without the administration of intravenous contrast material. Multiplanar coronal and sagittal images were reformatted. Individualized dose optimization techniques were used for this CT. COMPARISON: 01/06/2024. FINDINGS: Stable appearance of a left subclavian port. CHEST Lung windows show underlying emphysema with bleb formation throughout both upper lobes. There is stable and unchanged chronic atelectasis with air bronchograms and traction bronchiectasis in the anterior apical segment of the right upper lobe. There is stable irregular chronic thickening in the posterior aspect of the right major fissure extending into chronic pleural thickening overlying the medial surface of the right upper lobe. However, new since the previous study are multiple noncalcified nodular densities in the right lower lobe largest is on axial image 53 measuring 1.03 cm. These are suspicious for metastasis. There is stable nonspecific pleural thickening in the right hemithorax. No suspicious new noncalcified mass or nodule in the left lung there is stable pleural thickening in the left mid thorax. Thyroid gland is unremarkable. Normal heart and pericardium. There are calcifications of the coronary arteries. Stable pericardial effusion with maximum thickness of 9 mm. Stable subcentimeter in short axis dimension axillary, mediastinal and perihilar lymphadenopathy. No new suspicious bulky lymph nodes are noted. . Normal unenhanced pulmonary arteries. Normal aorta arch and descending thoracic aorta. There are multi-level degenerative changes of the thoracic spine. . ABDOMEN Normal liver. Normal gallbladder and extrahepatic biliary system. Normal spleen. Normal pancreas. Normal bilateral adrenal glands. Normal right kidney. Normal left kidney. Normal visualized stomach. Nondistended fluid-filled small bowel loops are noted consistent with ileus. This is likely due to retained stool throughout the colon. There are diffuse colonic diverticula at the junction of the distal descending and proximal sigmoid colon on axial images 55 through 66, there is pericolonic inflammatory stranding suggesting there is likely focal diverticulitis present. There is no perforation or abscess. There is non-visualization of the appendix. There is diffuse atherosclerotic calcification of the abdominal aorta with elongation and tortuosity, but without a demonstrated aneurysm. Normal inferior vena cava. Normal retroperitoneum. Normal abdominal wall. There are diffuse degenerative changes of the visualized lumbar spine. CT/CT Chest AND Abd W/O Contrast IMPRESSION: Stable right apical pleural thickening, traction bronchiectasis and scarring. New concerning noncalcified nodular densities in the right lower lobe suspicious for metastasis. Largest measures 1.03 cm on axial image 53 Focal diverticulitis suspected at the junction of the distal descending and proximal sigmoid colon without perforation or abscess No new suspicious bulky mediastinal or perihilar adenopathy Degenerative bony changes No suspicious solid organ abnormality Small bowel ileus likely due to retained stool throughout the colon No free intraperitoneal fluid, air, or suspicious adenopathy Electronically Signed: Chavez Bartholomew MD at 10:13 EST ,
== END | disposition home or self-care (01) ==
LOC: CT 07:59
PROVIDERS: Referring Provider Internal Medicine Medical Oncology; Visit Provider Internal Medicine Medical Oncology
DX: C34.11 Malignant neoplasm of upper lobe, right bronchus or lung (principal); R19.8 Other specified symptoms and signs involving the digestive system and abdomen
CPT/HCPCS: 71250; 74150

== ENCOUNTER → 2024-05-14 | Outpatient (CLI) | payer OTHER, SELFPAY ==
[2020-06-13 10:11] VITALS: BMI 21.9
--- NOTE | 2024-05-14 11:04 | MRI_ITS ---
PROCEDURE: BRAIN W/WO CONTRAST REASON FOR EXAM: Headache; history of lung cancer; concern for metastatic disease. Nasal bloody discharge. TECHNIQUE: Multiplanar, multisequence MRI of the brain with intravenous gadolinium-based contrast. COMPARISON: 06/27/2021. FINDINGS: Mild global parenchymal atrophy. Minimal T2/FLAIR periventricular white matter T2/FLAIR hyperintensity is likely representing mild chronic microvascular ischemia. 5 mm enhancing focus within the right occipital bone (contrast-enhanced coronal image 18). This is unchanged from the 06/27/2021 MRI and favored to be benign. No evidence of acute hemorrhage or infarction. No evidence of intraparenchymal metastatic disease. Absent [place] ocular lenses. MRI/Brain W/WO Contrast IMPRESSION: No evidence of parenchymal metastatic disease. No evidence of acute hemorrhage or infarction. Small right parietal bone enhancing focus which is stable and favoring a benign etiology. Reading Location: [id number]
[2024-05-14] MEDS: 0.9% Saline Lock 10 ML Syringe IV (15:18)
== END | disposition home or self-care (01) ==
PROVIDERS: Referring Provider Internal Medicine Medical Oncology; Visit Provider Internal Medicine Medical Oncology
DX: C34.90 Malignant neoplasm of unspecified part of unspecified bronchus or lung (principal)
CPT/HCPCS: 70553; A9575; A4216

== ENCOUNTER 2024-06-14 08:43 | Outpatient (CLI) | payer OTHER, SELFPAY ==
[2020-06-13 10:11] VITALS: BMI 21.9
[2024-06-14] VITALS (10 sets, daily range): BP systolic 122–182; BP diastolic 56–95; PULSE 61–74; RESP 14–18; TEMP 36.6; O2SAT 94–98; BMI 23.7
[2024-06-14 09:03] LABS: Absolute Lymphocyte Count 0.78 X10^3/uL (0.83-4.51); Absolute Neutrophil Count 5.6 X10^3/uL (2.0-7.7); Basophil# 0.04 X10^3/uL; Basophil% 0.5 % (0-1); Eosinophil# 0.33 X10^3/uL; Eosinophils% 4.3 % (0-5); Hemoglobin 13.9 g/dL (13.0-16.5); Lymphocyte # 0.78 X10^3/ul (0.83-4.51); Lymphocyte % 10.2 % (19-41); Mean Corp Hgb Conc 34.8 g/dL (32-36); Mean Corpuscular Hgb 30.8 pg (27.0-32.0); Mean Corpuscular Volume 88.5 fL (80-94); Mean Platelet Vol. 8.5 fl (6.2-12.0); Monocyte# 0.86 X10^3/uL; Monocyte% 11.3 % (0-10); NRBC Flagged by Analyzer 0 % (0-5); Neutrophil # 5.58 X10^3/uL (2.7-7.7); Neutrophil % 73.3 % (47-70); Platelet Count 340 K/mm3 (150-450); RBC Distribution Width CV 14.4 % (11.6-14.6); RBC Distribution Width SD 46.1 fl (35.1-43.9); Red Blood Count 4.52 M/mm3 (4.6-6.2); White Blood Count 7.6 K/mm3 (4.4-11.0)
[2024-06-14 09:15] LABS: Partial Thromboplast Time 26.7 Seconds (24.1-36.2); Prothrombin Time (Protime)PT. 13.8 SECONDS (11.7-14.9)
[2024-06-14] MEDS: 0.9% Normal Saline (250mL Bag) 250 ML 15 ML IV (09:41)
[2024-06-14] MEDS: Midazolam 2 MG/2 ML Syringe IV (10:02)
[2024-06-14] MEDS: fentaNYL 100 MCG/2 ML Ampul IV (10:03)
--- NOTE | 2024-06-14 10:15 | CT_ITS ---
PROCEDURE: BIOPSY/INJ OR NEEDLE PLACEMENT REASON FOR EXAM: Patient was scheduled for biopsy of a right lower lobe pulmonary nodule. TECHNIQUE: Multiple axial tomographic images were obtained without intravenous contrast administration. COMPARISON: Comparison is made with prior study dated April 12, 2024. FINDINGS: The patient was in the prone position. The previously seen nodular density left upper lobe is not seen at this time. CT/Biopsy/Inj or Needle Placement IMPRESSION: The previously seen nodular density in the left upper lobe is not identified at this time. Biopsy was not performed. One or more dose reduction techniques were used (e.g., Automated exposure contr ol, adjustment of the mA and/or kV according to patient size, use of iterative reconstruction technique). Reading Location: [place] [id number]
[2024-06-14] MEDS: 0.9% Saline Lock 10 ML Syringe IV ×2 (10:45→10:46)
== END 2024-06-14 23:59 | disposition home or self-care (01) ==
PROVIDERS: Referring Provider Internal Medicine Hematology & Oncology; Visit Provider Internal Medicine Hematology & Oncology
DX: C34.11 Malignant neoplasm of upper lobe, right bronchus or lung (principal); R91.8 Other nonspecific abnormal finding of lung field
CPT/HCPCS: 32408; 36415; 77012; 85025; 85610; 85730; 99156; A4216

== ENCOUNTER → 2024-09-06 | Outpatient (CLI) | payer OTHER, SELFPAY ==
[2020-06-13 10:11] VITALS: BMI 21.9
--- NOTE | 2024-09-06 12:26 | CT_ITS ---
PROCEDURE: CT CHEST AND ABD W/O CONTRAST REASON FOR EXAM: LUNG CA TECHNIQUE: Chest and abdomen CT without intravenous contrast. Coronal and Sagittal reconstruction series were provided. One or more dose reduction techniques were used (e.g., Automated exposure control, adjustment of the mA and/or kV according to patient size, use of iterative reconstruction technique PATIENT PREPARATION: Per protocol ORAL CONTRAST TYPE: None. AMOUNT: mL COMPARISON: 04/12/2024. RADIATION DOSE SUMMARY: CTDlvol: 12.3 mGy DLP: 705 mGycm FINDINGS: Unchanged emphysema. Unchanged chronic atelectasis with air bronchogram and traction bronchiectasis in the anterior apical segment of the right upper lobe. Unchanged chronic thickening in the posterior aspect of the right major fissure extending into chronic pleural thickening overlying the medial surface of the right upper lobe. Unchanged multiple noncalcified nodular densities in the right lower lobe with the largest measuring 1.03 cm. Unchanged nonspecific pleural thickening of the right hemithorax. Mild increase in pericardial effusion measuring 14 mm in its maximum thickness on the current exam. Unchanged chronic calcifications of the coronary arteries. Normal unenhanced liver. Normal gallbladder and extrahepatic biliary system. Normal unenhanced spleen. Normal pancreas. Normal bilateral adrenal glands. Normal size of the right kidney. There is no right renal mass. There are no right renal calculi. There is no right hydronephrosis. Normal visualized right ureter. Normal size of the left kidney. There is no left renal mass. There are no left renal calculi. There is no left hydronephrosis. Normal visualized left ureter. Normal visualized stomach. Normal small intestine. Normal colon. There is no demonstrated peritoneal fluid. Normal abdominal aorta. Normal inferior vena cava. Normal retroperitoneum. Normal abdominal wall. CT/CT Chest AND Abd W/O Contrast IMPRESSION: Unchanged emphysema. Unchanged chronic atelectasis with air bronchogram and traction bronchiectasis in the anterior apical segment of the right upper lobe. Unchanged chronic thickening in the posterior aspect of the right major fissure extending into chronic pleural thickening overlying the medial surface of the right upper lobe. Unchanged multiple noncalcified nodular densities in the right lower lobe with the largest measuring 1.03 cm. Unchanged nonspecific pleural thickening of the right hemithorax. Mild increase in pericardial effusion measuring 14 mm in its maximum thickness on the current exam. Unchanged chronic calcifications of the coronary arteries. Reading [facility]
== END | disposition home or self-care (01) ==
LOC: CT 12:26
PROVIDERS: Referring Provider Internal Medicine Medical Oncology; Visit Provider Internal Medicine Medical Oncology
DX: R91.8 Other nonspecific abnormal finding of lung field (principal); C34.91 Malignant neoplasm of unspecified part of right bronchus or lung
CPT/HCPCS: 71250; 74150